=== PATIENT | female | born 1995 | race Hispanic/Latino ===

== ENCOUNTER 2019-09-21 20:42 | Emergency (ER) | payer OTHER, SELFPAY ==
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
[2019-09-21 20:50] VITALS: BP 125/76; PULSE 100; RESP 16; TEMP 36.7; O2SAT 97
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
[2019-09-21] MEDS: IBUPROFEN 600 MG TABLET PO (21:13)
--- NOTE | 2019-09-21 21:27 | PC.NURSE ---
pt back from ct
[2019-09-21 22:13] VITALS: BP 121/73; PULSE 67; RESP 19; TEMP 37.1; O2SAT 97
== END 2019-09-21 22:10 | disposition home or self-care (01) ==
PROVIDERS: Emergency Provider Emergency Medicine
DX: S39.92XA Unspecified injury of lower back, initial encounter (principal); S80.02XA Contusion of left knee, initial encounter; V43.52XA Car driver injured in collision with other type car in traffic accident, initial encounter
CPT/HCPCS: 72100; 73564; 81025; 99284; A9270

== ENCOUNTER 2020-02-10 00:31 | Emergency (ER) | payer OTHER, SELFPAY ==
[2020-02-10 00:34] VITALS: BP 117/83; PULSE 97; RESP 18; TEMP 36.4; O2SAT 98
[2020-02-10 00:44] VITALS: BP 135/88; PULSE 99; RESP 18; TEMP 37.2; O2SAT 96
--- NOTE | 2020-02-10 01:11 | ED.ALLEREA ---
HPI - Allergic Reaction General Chief complaint: Allergic Reaction Stated complaint: allergic reaction Time Seen by Provider: 02/10/20 00:54 History of Present Illness HPI narrative: Patient presents with itchy rash around her mouth lips and nose. Her daughter had applied plain make-up to her face. She has been rubbing and itching it since. She has other allergies including kiwi which makes her mouth tingle. She says she gets too sleepy with Benadryl. Certain Chapstick's also irritate her. She has no medical problems. Uses a Mirena for control. Surgical history includes x2. She does not smoke cigarettes, she does drink alcohol, she does not smoke marijuana. complaint: allergic reaction Onset (ago): hour(s) Exposure: other (Play lipstick) Symptoms: rash and itching Related Data Allergies Allergy/AdvReac Type Severity Reaction Status Date / Time codeine Allergy Unknown Hives Verified 09/21/19 20:54 Kiwi Allergy Unknown Unknown Uncoded 05/24/19 08:32 Review of Systems Review of Systems: Narrative: CONSTITUTIONAL: Denies fever, chills, or sweats. EYES: Denies visual changes, redness, or discharge. ENT: Denies rhinorrhea, congestion, sore throat, or otalgia. CARDIOVASCULAR: Denies chest pain, palpitations, or edema. RESPIRATORY: Denies cough or dyspnea. GASTROINTESTINAL: Denies abdominal pain, nausea, vomiting, or diarrhea. GENITOURINARY: Denies dysuria or hematuria. SKIN: She has rash and itching, Around her mouth MUSCULOSKELETAL: Denies back pain, joint pain, or myalgia. NEUROLOGIC: Denies headache, numbness, or weakness. PSYCHIATRIC: Denies anxiety or depression. [facility] Past Medical History Medical History Allergic reaction No pertinent past medical history Overweight Surgical History Surgical History History of History of section Social History Social History (Updated 02/10/20 @ 01:13 by Mariza Velez MD) Smoking status: Never smoker Alcohol intake: current Substance use: never Gender identity (if verbalized by the patient): Female Exam Narrative: Exam Narrative: GENERAL: Well-appearing, well-nourished, and in no acute distress. Overweight HEAD: Normocephalic, atraumatic. EYES: PERRLA and EOMI. ENT: Nares clear, no rhinorrhea or epistaxis. Mucous membranes moist. NECK: Supple. CHEST: Clear to auscultation. No respiratory distress. HEART: Regular rate and rhythm. No murmur heard. Normal peripheral pulses. ABDOMEN: Soft, nontender, nondistended, normal active bowel sounds. EXTREMITIES: Normal range of motion. No edema. SKIN: Warm, dry, slightly red rash around her mouth and nose. NEURO: No focal deficits. Alert and oriented x3. PSYCH: Normal mood and affect. Course Vital Signs Vital signs: Vital Signs Temperature 97.5 F L 02/10/20 00:34 Pulse Rate 97 02/10/20 00:34 Respiratory Rate 18 02/10/20 00:34 Blood Pressure 117/83 02/10/20 00:34 Pulse Oximetry 98 02/10/20 00:34 Temperature 99.0 F 02/10/20 00:44 Pulse Rate 99 02/10/20 00:44 Respiratory Rate 18 02/10/20 00:44 Blood Pressure 135/88 02/10/20 00:44 Pulse Oximetry 96 02/10/20 00:44 MDM - Allergic Reaction Differential Diagnosis Differential diagnosis: Likely allergic reaction Medical Records Attestation: I reviewed the patient's medical records. Discharge Plan Discharge Clinical Impression: Allergic reaction Qualifiers: Encounter type: initial encounter Qualified Code(s): T78.40XA - Allergy, unspecified, initial encounter Patient Disposition: Home, Self-Care Condition: Stable Instructions: Acute Rash (ED) Additional Instructions: Keep Benadryl, Claritin, and Zyrtec at home for allergic reaction. Avoid make-up, to get ingredients together as few as possible. Prescriptions: No Action cyclobenzaprine 10 mg tablet 10 mg PO TID PRN (R
[2020-02-10 01:55] VITALS: BP 129/80; PULSE 90; RESP 16; TEMP 37.2; O2SAT 98
== END 2020-02-10 01:57 | disposition home or self-care (01) ==
PROVIDERS: Emergency Provider Emergency Medicine
DX: T78.40XA Allergy, unspecified, initial encounter (principal); E66.3 Overweight; Z68.41 Body mass index [BMI] 40.0-44.9, adult
CPT/HCPCS: 99281

== ENCOUNTER 2020-03-02 22:25 | Emergency (ER) | payer OTHER, SELFPAY ==
[2020-03-02 22:27] VITALS: BP 121/97; PULSE 93; RESP 19; TEMP 37.2; O2SAT 100
--- NOTE | 2020-03-02 22:33 | ED.WOUNDLAC ---
HPI - Wound/Laceration General Chief Complaint: Wound/Laceration Stated Complaint: R 5th finger lac Time Seen by Provider: 03/02/20 22:30 Source: RN notes reviewed History of Present Illness HPI narrative: Patient presents emergency department from home for finger laceration. Patient states she was washing dishes prior to arrival when a glass broke cutting her right lateral fifth digit. Patient with flap laceration with venous bleeding at this time. She denies any other injury states she is right-hand dominant. Patient states her last tetanus shot was approximately 5 years ago. Denies any numbness or tingling Related Data Allergies Allergy/AdvReac Type Severity Reaction Status Date / Time codeine Allergy Unknown Hives Verified 09/21/19 20:54 Kiwi Allergy Unknown Unknown Uncoded 05/24/19 08:32 Review of Systems Review of Systems: Narrative: Gen.: Denies fevers or chills Musculoskeletal: Reports fifth finger pain Neuro: Denies numbness, tingling, weakness Skin: See HPI Endo: Denies DM PMFSH Past Medical History Medical History Allergic reaction No pertinent past medical history Overweight Social History Social History Smoking status: Never smoker Alcohol intake: current Substance use: never Gender identity (if verbalized by the patient): Female Exam Narrative: Exam Narrative: APPEARANCE: No acute distress, nontoxic, resting in bed Eyes: EOMI HEENT: Normocephalic, atraumatic, RESPIRATORY: No respiratory distress MUSCULOSKELETAl: Right fifth digit with full flexion-extension of MCP PIP and DIP, capillary refill less than 3 seconds NEURO: Awake and alert. Following commands, speech normal, no focal deficits SKIN:: Warm, dry. Large skin flap over the right lateral fifth digit in the region of the middle phalanx that is a flap laceration that is barely intact only by a tiny thread of skin approximately there is mild venous bleeding no tendon involvement no foreign body Course Course Emergency Course: Discussed with patient results of workup and diagnosis. Discussed need for follow-up with primary care, proper use of medication, and reasons to return to the emergency department. Patient understands and agrees to current treatment plan Vital Signs Vital signs: Vital Signs Temperature 98.9 F 03/02/20 22:27 Pulse Rate 93 03/02/20 22:27 Respiratory Rate 19 03/02/20 22:27 Blood Pressure 121/97 H 03/02/20 22:27 Pulse Oximetry 100 03/02/20 22:27 Temperature 98.9 F 03/02/20 22:27 Pulse Rate 93 03/02/20 22:27 Respiratory Rate 19 03/02/20 22:27 Blood Pressure 121/97 H 03/02/20 22:27 Pulse Oximetry 100 03/02/20 22:27 Procedures Laceration Laceration 1: ====== Skin Level ====== ====== Subcutaneous Layer ====== ====== Muscle Layer ====== ====== Tendon Layer ====== Dressin.5 cm flap laceration of the right digi. A digital block was performed using lidocaine 1%. Following this the wound was extensively cleaned with normal saline. The patient was noted to have a flap laceration only held in place by a tiny thread of skin and the flap was removed as it was felt that the skin would . The wound was extensively cleaned and a sterile dressing was placed. Patient tolerated the procedure well Discharge Plan Discharge Clinical Impression: Laceration of right little finger Patient Disposition: Home, Self-Care Condition: Stable Instructions: Antibiotic Form, Skin Avulsion (ED) Additional Instructions: Return for increasing pain bleeding from the wounds or any other symptoms of concern Prescriptions: No Action cyclobenzaprine 10 mg tablet 10 mg PO TID PRN (Reason: muscle spasm) Qty: 10 RF: 0 ibuprofen [IBU] 600 mg tablet 600 mg PO Q6H PRN (Reason: pain) Qty: 20 RF: 0 Follow-up/Referrals: PHYSICIAN,MIXING MACHINE OPERATOR [Prim
[2020-03-03 00:54] VITALS: BP 124/83; PULSE 88; RESP 22; TEMP 36.3; O2SAT 100
== END 2020-03-03 01:03 | disposition home or self-care (01) ==
PROVIDERS: Emergency Provider Emergency Medicine
DX: S61.216A Laceration without foreign body of right little finger without damage to nail, initial encounter (principal); W25.XXXA Contact with sharp glass, initial encounter; Y93.G1 Activity, food preparation and clean up
CPT/HCPCS: 99282

== ENCOUNTER 2020-11-29 14:46 | Emergency (ER) | payer OTHER, SELFPAY ==
--- NOTE | ~2020-11-29 | XR_ITS ---
EXAMINATION: XR knee LT min 4V DATE: 11/29/2020 15:18 INDICATION: Left knee pain TECHNIQUE: Weight bearing anteroposterior and Wills, sunrise, and flexed lateral views of the lef t knee were obtained COMPARISON: None. FINDINGS: Alignment is normal. No fracture. No joint effusion. Chronic corticated ossicles along the distal pa tellar tendon likely sequela of childhood Ash-Schlatter's disease. Soft tissues are unremarkable. IMPRESSION: 1. Stigmata of chronic Ash-Schlatter's disease. Otherwise unremarkable left knee radiographs. Reviewed, dictated and finalized at location A. IMPRESSION: 1. Stigmata of chronic Naches-Schlatter's disease. Otherwise unremarkable left knee radiographs.
--- NOTE | 2020-11-29 14:52 | ED.GENADULT ---
HPI - General Adult General Chief complaint: Extremity Injury, Lower Stated complaint: Left Knee Pain Time Seen by Provider: 11/29/20 15:05 Source: patient Mode of arrival: ambulatory Limitations: no limitations History of Present Illness HPI narrative: 25-year-old female patient presents to the [facility] with complaints of left knee pain for the past 2 weeks. Patient states she has chronic issues with her knees and has since she was about 16 years old. Patient states that her bones grew faster than she did. Patient states that she has been playing volleyball and been more active lately and 2 weeks ago she played volleyball and thinks that she might have slightly injured it then. Patient states it continues to have pain when walking on it. Patient states that at times she wraps it but nothing consistent. Patient states she has been taking Tylenol for her pain. Related Data Allergies Allergy/AdvReac Type Severity Reaction Status Date / Time codeine Allergy Unknown Hives Verified 09/21/19 20:54 Kiwi Allergy Unknown Unknown Uncoded 05/24/19 08:32 Review of Systems Review of Systems: Narrative: CONSTITUTIONAL: Denies fever, chills, or sweats. EYES: Denies visual changes, redness, or discharge. ENT: Denies rhinorrhea, congestion, sore throat, or otalgia. CARDIOVASCULAR: Denies chest pain, palpitations, or edema. RESPIRATORY: Denies cough or dyspnea. GASTROINTESTINAL: Denies abdominal pain, nausea, vomiting, or diarrhea. GENITOURINARY: Denies dysuria or hematuria. SKIN: Denies rash or itching. MUSCULOSKELETAL: Denies back pain, joint pain, or myalgia. Positive left knee pain x2 weeks NEUROLOGIC: Denies headache, numbness, or weakness. PSYCHIATRIC: Denies anxiety or depression. [facility] Past Medical History Medical History (Updated 11/29/20 @ 15:55 by RYAN Hernandez) Allergic reaction No pertinent past medical history Overweight Surgical History Surgical History History of History of section Social History Social History Smoking status: Never smoker Alcohol intake: current Substance use: never Gender identity (if verbalized by the patient): Female Comments At the time of my signature I agree with nursing past medical history, surgical, social, and family history. There is no relevant family history pertinent to the presenting complaint. Exam Narrative: Exam Narrative: GENERAL: Well-appearing, well-nourished, and in no acute distress. HEAD: Normocephalic, atraumatic. EYES: PERRLA and EOMI. ENT: Nares clear, no rhinorrhea or epistaxis. Mucous membranes moist. NECK: Supple. No lymphadenopathy CHEST: Clear to auscultation. No respiratory distress. HEART: Regular rate and rhythm. No murmur heard. Normal peripheral pulses. ABDOMEN: Soft, nontender, nondistended, normal active bowel sounds. EXTREMITIES: Patient is able to bear weight and ambulate but has pain to the left knee. No surface trauma, STS, or obvious effusion. No overlying erythema or warmth. The L knee is without obvious asymmetry or deformity when compared to the R/L knee. Patient is able to do deep knee bend with symmetry, fully extend knee but does have pain with these motions, no pain with internal and external rotation. No tendernss to palpation of the patella, no effusion or ballottement. No tenderness over the infrapatellar tendon. No tenderness over the medial or lateral joint lone ot the medial or lateral tibial plateaus. no tenderness over the proximal fibular head. no tenderness, fullness, or mass of the popliteal fossa. No quadriceps tenderness. No laxity of the ACL, PCL, MCL, or LCL. No collateral ligament laxity to valgus or vargus stress. Possibly positive francisco/drawer sign patient is heavier sent and is hard to tell. There is a lot of popping felt with flexion and extension of the left knee.. Negative Carley. Ne
[2020-11-29 14:54] VITALS: BP 123/73; PULSE 75; RESP 16; TEMP 36.5; O2SAT 98
== END 2020-11-29 16:00 | disposition home or self-care (01) ==
PROVIDERS: Emergency Provider Nurse Practitioner Family
DX: G89.29 Other chronic pain (principal); M25.562 Pain in left knee; E66.3 Overweight; Z68.41 Body mass index [BMI] 40.0-44.9, adult
CPT/HCPCS: 73564; 99213; G0463

== ENCOUNTER 2021-07-04 18:08 | Emergency (ER) | payer OTHER, SELFPAY ==
--- NOTE | ~2021-07-04 | XR_ITS ---
EXAMINATION: XR chest 1V portable DATE: 07/04/2021 21:16 INDICATION: Cough and fever and shortness of breath. TECHNIQUE: A single frontal view of the chest was obtained. COMPARISON: None. FINDINGS: The chest demonstrates clear lungs without pneumonia, pleural effusion, or pneumothorax. Th e heart size is normal. IMPRESSION: 1. No acute cardiopulmonary disease. Reviewed, dictated and finalized at location A. N BELT
[2021-07-04 18:12] VITALS: BP 143/83; PULSE 104; RESP 19; TEMP 37.1; O2SAT 98
[2021-07-04 20:56] VITALS: BP 125/79; PULSE 82; RESP 17; TEMP 37.3; O2SAT 98
[2021-07-04 20:57] VITALS: O2SAT 98
--- NOTE | 2021-07-04 21:26 | ED.URI ---
HPI - URI/Sore Throat General Chief Complaint: Upper Respiratory Infection Stated Complaint: SOB Time Seen by Provider: 07/04/21 20:42 Source: patient and RN notes reviewed Mode of arrival: ambulatory Limitations: no limitations History of Present Illness HPI Narrative: This is a 26 year old female who presents for evaluation of an upper respiratory infection. Patient has been having symptoms concerning for covid for 3 days. She is complaining of body aches, fever, chills, sore throat, loss of taste and smell , and cough. She is having nausea and diarrhea. She is awaiting results of COVID. She came to ER to get diagnosis. She has not been vaccinated but does not think she has had sick contacts. She lives with and kids. No one is vaccinated. Related Data Allergies Allergy/AdvReac Type Severity Reaction Status Date / Time codeine Allergy Unknown Hives Verified 07/04/21 18:14 Kiwi Allergy Unknown Unknown Uncoded 07/04/21 18:14 Review of Systems Review of Systems: All systems reviewed & are unremarkable except as noted in HPI and below PMFSH Past Medical History Medical History (Updated 07/04/21 @ 21:34 by Romelia Crespo MD) Allergic reaction No pertinent past medical history Overweight Surgical History Surgical History History of History of section Social History Social History Smoking status: Never smoker Alcohol intake: current Substance use: never Gender identity (if verbalized by the patient): Female Exam Const: General: no acute distress and alert Orientation/consciousness: patient oriented x3 HENMT: Head: normocephalic and atraumatic Ears: TM's normal bilaterally Face and sinus: normal facial exam, sinuses nontender and face symmetric Mouth: Yes Normal oral and palatal mucosa present, Yes lip normal, Yes tongue normal, Yes oropharynx normal and Yes moist mucous membranes Throat: posterior oropharynx normal, tonsils normal and uvula midline Eyes: EOM: EOMs intact bilaterally Resp: Effort & Inspection: normal respiratory effort, not labored, no retractions and not tachypneic Auscultation: clear to auscultation bilaterally and no crackles Cardio: Rate: regular rate Rhythm: regular rhythm Heart sounds: no murmurs GI: GI Palp: Yes Soft to palpation, No Tenderness to palpation present (GI) and No Guarding due to palpation present (GI) Auscultation: normal bowel sounds Neuro: General: patient oriented x3, moves all extremities and CN's II-XI intact bilaterally Psych: Mental Status: mental status grossly normal Affect: normal affect Course Reevaluation(s) Reevaluation #1: I Discussed with patient plan to discharge. She is not hypoxic. Chest xray is clear. I discussed she is likely dealing with viral infection. She understands she will need to quarantine until her covid results return. Date: 07/04/21 Time: 21:33 Vital Signs Vital signs: Vital Signs Temperature 98.7 F 07/04/21 18:12 Pulse Rate 104 H 07/04/21 18:12 Respiratory Rate 19 07/04/21 18:12 Blood Pressure 143/83 H 07/04/21 18:12 Pulse Oximetry 98 07/04/21 18:12 Temperature 99.2 F 07/04/21 20:56 Pulse Rate 82 07/04/21 20:56 Respiratory Rate 17 07/04/21 20:56 Blood Pressure 125/79 07/04/21 20:56 Pulse Oximetry 98 07/04/21 20:57 MDM - URI/Sore Throat Lab Data Labs: Influenza A Screen Negative Reference Range: Negative Influenza B Screen Negative Reference Range: Negative Strep Screen Presumptive Negative *(Reference Range: Negative)* Imaging Data Radiologist's impression: ITS Impressions Chest X-Ray 07/04/21 21:22 IMPRESSION: 1. No acute cardiopulmonar
[2021-07-04] MEDS: ONDANSETRON HCL ODT 4 MG TABLET PO (21:46)
== END 2021-07-04 21:52 | disposition home or self-care (01) ==
PROVIDERS: Emergency Provider General Practice
DX: B34.9 Viral infection, unspecified (principal); Z20.822 Contact with and (suspected) exposure to COVID-19; E66.3 Overweight; Z68.41 Body mass index [BMI] 40.0-44.9, adult
CPT/HCPCS: 71045; 87081; 87804; 87880; 99283; A9270

== ENCOUNTER 2022-05-18 17:41 | Emergency (ER) | payer OTHER, SELFPAY ==
[2022-05-18 17:49] VITALS: BP 124/79; PULSE 93; RESP 14; TEMP 36.4; O2SAT 99
--- NOTE | 2022-05-18 18:09 | ED.FEMALEGU ---
HPI - Female Genitourinary General Chief complaint: Vaginal Bleeding <Fariha Barrett PA-C - Last Filed: 05/18/22 18:34> Stated complaint: abnormal vaginal bleeding with clots <Fariha Barrett PA-C - Last Filed: 05/18/22 18:34> Time Seen by Provider: 05/18/22 17:56 <Fariha Barrett PA-C - Last Filed: 05/18/22 18:34> Source: patient <AIDEE Concepcion Last Filed: 05/18/22 18:34> Mode of arrival: ambulatory <Fariha Barrett PA-C - Last Filed: 05/18/22 18:34> Limitations: no limitations <Fariha Barrett PA-C - Last Filed: 05/18/22 18:34> History of Present Illness HPI Narrative: This is a 27-year-old female that presents to the emergency department for abnormal uterine bleeding. Ongoing over the last couple of months. Reports she is currently on her menstrual cycle. She has been on for about 4 days. Today her cycle became heavier which prompted her to be seen. She has had to use 2 regular tampons in the last couple of hours. Denies lightheadedness or shortness of breath. <Fariha Barrett PA-C - Last Filed: 05/18/22 18:34> Related Data Allergies/Adverse reactions: Allergies Allergy/AdvReac Type Severity Reaction Status Date / Time codeine Allergy Unknown Hives Verified 07/04/21 18:14 Kiwi Allergy Unknown Unknown Uncoded 07/04/21 18:14 <Fariha Barrett PA-C - Last Filed: 05/18/22 18:34> Review of Systems Review of Systems: CONSTITUTIONAL: Denies fever GASTROINTESTINAL: Denies abdominal pain, vomiting <Fariha Barrett PA-C - Last Filed: 05/18/22 18:34> All systems reviewed & are unremarkable except as noted in HPI and below <Fariha Barrett PA-C - Last Filed: 05/18/22 18:34> [facility] Past Medical History Medical History: Medical History (Updated 05/18/22 @ 18:34 by Fariha Barrett PA-C) Allergic reaction No pertinent past medical history Overweight <Fariha Barrett PA-C - Last Filed: 05/18/22 18:34> Surgical History Surgical History: Surgical History History of History of section <Fariha Barrett PA-C - Last Filed: 05/18/22 18:34> Social History Social History: Social History Smoking status: Never smoker Alcohol intake: current Substance use: never Gender identity (if verbalized by the patient): Female <Fariha Barrett PA-C - Last Filed: 05/18/22 18:34> Exam Narrative: GENERAL: Well-appearing, well-nourished, and in no acute distress. HEAD: Normocephalic, atraumatic. EYES: EOMI. CHEST: No respiratory distress. HEART: Regular rate EXTREMITIES: Normal range of motion. No edema. SKIN: Warm, dry, no rash. NEURO: No focal deficits. Alert and oriented x3. PSYCH: Normal mood and affect PELVIC: Normal external genitalia. Normal-appearing cervix. 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 I agree with the assessment and plan as documented. <Jong Day MD - Last Filed: 05/18/22 23:01> Vital Signs Vital signs: Vital Signs Temperature 97.6 F 05/18/22 17:49 Pulse Rate 93 05/18/22 17:49 Respiratory Rate 14 05/18/22 17:49 Blood Pressure 124/79 05/18/22 17:49 Pulse Oximetry 99 05/18/22 17:49 Oxygen Delivery Room Air 05/18/22 17:49 Temperature 97.6 F 05/18/22 17:49 Pulse Rate 93 05/18/22 17:49 Respiratory Rate 14 05/18/22 17:49 Blood Pressure 124/79 05/18/22 17:49 Pulse Oximetry 99 05/18/22 17:49 Oxygen Delivery Room Air 05/18/22 17:49 <Fariha Barrett PA-C - Last Filed: 05/18/22 18:34> Vital Signs Temperature 97.6 F 05/18/22 17:49 Pulse Rate 93 05/18/22 17:49 Respiratory Rate 14 05/18/22 17:49 Blood Pressure 124/79 05/18/22 17:49 Pulse Oximetry 99 05/18/22 17:4
[2022-05-18 18:22] LABS: Basophils Percent Auto 0.4 % (0.2-1.2); Eosinophils Absolute Auto 0.2 K/mm3 (0-0.3); Hematocrit 38.8 % (37.0-47.0); Hemoglobin 13.1 g/dL (12.0-15.0); Immature Granulocyte Absolute 0.02 K/mm3 (0.00-0.031); Immature Granulocyte Percent A 0.3 % (0-0.5); Lymphocytes Absolute Auto 1.62 K/mm3 (0.9-3.2); Lymphocytes Percent Auto 21.6 % (18.3-44.2); Mean Corpuscular HGB Conc 33.8 g/dl (32-36); Mean Corpuscular Hemoglobin 30.8 pg (26-34); Mean Corpuscular Volume 91.1 fl (80-100); Mean Platelet Volume 9.4 fl (7.4-10.4); Monocytes Absolute Auto 0.3 K/mm3 (0.1-0.6); Monocytes Percent Auto 4.4 % (2.6-8.5); Neutrophils Absolute Auto 5.4 K/mm3 (1.3-6.7); Neutrophils Percent Auto 71.3 % (45.5-73.1); Platelet Count Result 328 k/mm3 (150-375); Red Blood Count 4.26 M/mm3 (4.2-5.4); White Blood Count 7.5 K/mm3 (4.5-10.0)
== END 2022-05-18 18:42 | disposition home or self-care (01) ==
PROVIDERS: Physician Assistant; Emergency Provider Preventive Medicine Aerospace Medicine
DX: N93.8 Other specified abnormal uterine and vaginal bleeding (principal)
CPT/HCPCS: 36415; 81025; 85025; 99284

== ENCOUNTER 2022-05-31 16:19 | Emergency (ER) | payer OTHER, SELFPAY ==
[2022-05-31 16:31] VITALS: BP 111/68; PULSE 76; RESP 16; TEMP 36.2; O2SAT 99
--- NOTE | 2022-05-31 16:51 | ED.ABDPAIN ---
HPI - Abdominal Pain General Chief Complaint: Abdominal Pain Stated Complaint: Abdominal Pain, Vomiting Time Seen by Provider: 05/31/22 16:51 Source: patient, RN notes reviewed and old records reviewed Mode of arrival: ambulatory Limitations: no limitations History of Present Illness HPI narrative: 27-year-old female presents to the [facility] with complaints of right lower quadrant pain and vomiting since last night. Unable to keep fluids down. Patient states ?I just need some IV fluids back in take my kids trigger treating. ? Does not want to go to the ER. Related Data Allergies Allergy/AdvReac Type Severity Reaction Status Date / Time codeine Allergy Unknown Hives Verified 05/31/22 16:36 Kiwi Allergy Unknown Unknown Uncoded 05/31/22 16:36 Review of Systems Review of Systems: All systems reviewed & are unremarkable except as noted in HPI and below Constitutional: Constitutional: Reports no additional constitutional complaints, Denies chills and Denies fever(s) Eyes: Eyes: Reports no additional eye complaints ENT: Reports system reviewed and no additional complaints, except as documented Cardiovascular: Cardiovascular: Reports no additional cardiovascular complaints Respiratory: Respiratory: Reports no additional respiratory complaints Gastrointestinal: Gastrointestinal: Reports as per HPI, Reports abdominal pain (Right lower quadrant), Reports nausea and Reports vomiting Musculoskeletal: Musculoskeletal: Reports no additional musculoskeletal complaints Integumentary/Breasts: Skin/Breast: Reports system reviewed and no additional complaints, except as docu Neurologic: Reports system reviewed and no additional complaints, except as documented Psychiatric: Psychiatric: Reports no additional psychiatric complaints Allergic/Immunologic: Allergic/Immunologic: Reports no additional allergic/immunologic complaints [facility] Past Medical History Medical History (Updated 06/01/22 @ 07:55 by Jenna Solis APRN) Allergic reaction No pertinent past medical history Overweight Surgical History Surgical History History of History of section Social History Social History Smoking status: Never smoker Alcohol intake: current Substance use: never Gender identity (if verbalized by the patient): Female Comments At the time of my signature, I reviewed and agree with the nursing past medical, surgical, social, and family history. There is no relevant family history pertinent to the patient complaint. Exam Const: General: no acute distress, alert, ill appearing acutely (Mild) and well nourished Nutritional Appearance: well nourished and obese Orientation/consciousness: patient oriented x3 Limitations: no limitations HENMT: Head: normal to inspection Ears: external ears normal, TM's normal bilaterally and EAC's normal Face/Nose/Sinus: Normal external nose present Face and sinus: normal facial exam Mouth: Yes lip normal and Yes dry mucous membranes Throat: posterior oropharynx normal and uvula midline Eyes: General: appearance normal, both eyes and all related structures Pupils: Equal, round and reactive pupils present Neck: Neck: normal visual inspection, no lymphadenopathy and no meningeal signs Chest: Chest palpation & inspection: normal inspection of the chest Resp: Effort & Inspection: normal respiratory effort and no use of accessory muscles Auscultation: clear to auscultation bilaterally, no crackles, no rales, no rhonchi and no wheezes Cardio: Rate: regular rate Rhythm: regular rhythm GI: GI Palp: Yes Soft to palpation, Yes Tenderness to palpation present (GI) (Right lower quadrant), No Guarding due to palpation present (GI) and No Rigid due to palpation Auscultation: normal bowel sounds Skin: General skin exam: normal color Rashes: no rashes Wounds: no wounds Neuro:
== END 2022-05-31 17:06 | disposition short-term general hospital (02) ==
LOC: EXPCOLL 16:22
PROVIDERS: Emergency Provider Nurse Practitioner
DX: R10.31 Right lower quadrant pain (principal); R11.2 Nausea with vomiting, unspecified
CPT/HCPCS: 99212; G0463

== ENCOUNTER 2022-08-17 12:02 | Emergency (ER) | payer OTHER, SELFPAY ==
--- NOTE | ~2022-08-17 | CT_ITS ---
Non-contrast CT scan of the Abdomen and Pelvis Clinical indication: Left flank pain Technique: 5 mm axial scans were obtained through the abdomen and pelvis without intravenous or oral contrast. Dose reduction technique was used on this scan by utilizing automated exposure control and iterative reconstruction technique. The dose-length product (DLP) was 604.19 mGy-cm. Findings: Images through the lung bases reveal no abnormalities. 3 mm left UVJ stone is present. No mars hydronephrosis. 3 mm nonobstructing right renal stone presen t. The liver, spleen, pancreas, and adrenals appear normal. Gallstones are present. There is no aortic a neurysm. There is no evidence of bowel obstruction. Normal appendix. Images through the pelvis were performed. There is no evidence of ascites or lymphadenopathy. Urinary bladder unremarkable otherwise. No adnexal mass seen. Impression: 3 mm left UVJ stone. No mars hydronephrosis. 3 mm nonobstructing right renal stone. Reviewed, dictated and finalized at [facility]. 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 No mars hydronephrosis. 3 mm nonobstructing right renal stone.
[2022-08-17 12:18] VITALS: BP 130/88; PULSE 95; RESP 16; TEMP 36.3; O2SAT 97
[2022-08-17 12:59] LABS: Appearance Urine Clear (Clear); Bilirubin Urine Negative (Negative); Blood Urine 1+ (Negative); Color Urine Yellow (Yellow); Glucose Urine UA Negative (Negative); Ketones Urine Negative (Negative); Leukocyte Esterase Ur Negative LEU/UL (Negative); Nitrate Urine Negative (Negative); Protein Urine Trace mg/dL (Negative); Specific Grav Ur 1.025 (1.001-1.035); Urobilinogen Urine 0.2 mg/dL (<2.0); pH Urine 6.5 (5.0-9.0)
[2022-08-17 13:07] LABS: Add Urine Microscopic? YES; Bacteria Urine Trace /hpf; Mucus Urine Heavy /lpf; RBC Urine 21-50 /hpf (0-2); Squamous Epithelial Cell Urine Moderate /hpf (Few); WBC Urine 0-3 /hpf
[2022-08-17] MEDS: KETOROLAC 30 MG/ML VIAL (*BKC) IM (13:34)
--- NOTE | 2022-08-17 17:04 | ED.ABDPAIN ---
HPI - Abdominal Pain General Chief Complaint: Abdominal Pain Stated Complaint: pain in left lower ribs Time Seen by Provider: 08/17/22 12:35 History of Present Illness HPI narrative: 27-year-old female presenting with left flank pain, blood in her urine, increased frequency some nausea today. No fevers or chills., Never had been diagnosed with kidney stones in the past. Takes Tylenol for the pain with some improvement. Related Data Allergies Allergy/AdvReac Type Severity Reaction Status Date / Time codeine Allergy Unknown Hives Verified 08/17/22 12:29 Kiwi Allergy Unknown Unknown Uncoded 05/31/22 16:36 Review of Systems Review of Systems: CONST: No fever. HEENT: No sore throat C/V: No chest pain RESP: No cough GI: Reports left flank pain, nausea : dysuria. M/S: No joint pain. SKIN: No rash. NEURO: [No headache or focal numbness or weakness] PSYCH: [No depression] PMFSH Past Medical History Medical History Allergic reaction No pertinent past medical history Overweight Surgical History Surgical History History of History of section Social History Social History Smoking status: Never smoker Alcohol intake: current Substance use: never Gender identity (if verbalized by the patient): Female Exam Narrative: EXAMINATION OF ORGAN SYSTEMS/BODY AREAS: Constitutional: Vital signs per nursing GENERAL: Sitting comfortably, nontoxic HEAD: Normal with no signs of head trauma. EYES: EOMI, conjunctiva normal ENT: Hearing grossly intact LUNGS: Nonlabored breathing. HEART: [Regular rate and rhythm] ABD: [Soft], [nontender to palpation] EXT: Normal range of motion SKIN: [No rashes or lesions.] NEURO: [Alert and oriented x 3. No gross focal sensory or strength deficits.] PSYCH: Normal affect Course Vital Signs Vital signs: Vital Signs Temperature 97.4 F L 08/17/22 12:18 Pulse Rate 95 08/17/22 12:18 Respiratory Rate 16 08/17/22 12:18 Blood Pressure 130/88 08/17/22 12:18 Pulse Oximetry 97 08/17/22 12:18 Oxygen Delivery Room Air 08/17/22 12:18 Temperature 97.4 F L 08/17/22 12:18 Pulse Rate 95 08/17/22 12:18 Respiratory Rate 16 08/17/22 12:18 Blood Pressure 130/88 08/17/22 12:18 Pulse Oximetry 97 08/17/22 12:18 Oxygen Delivery Room Air 08/17/22 12:18 MDM - Abdominal Pain MDM Narrative Medical decision making narrative: ED COURSE AND MEDICAL DECISION MAKIN-year-old female presenting to the emergency department for left flank pain, symptoms are concerning for likely renal colic versus pyelonephritis. Urinalysis is ordered. Toradol ordered. CT scan of the abdomen/pelvis is ordered. Labs are remarkable for: Hematuria without pyuria. CT scan of the abdomen/pelvis is reviewed by myself and interpreted by radiology: 3 mm left UVJ stone. On reevaluation, the patient more comfortable. Patient is strongly advised to return to the emergency department for any increasing pain not improving with medications, persistent nausea vomiting, fevers or chills or for any other concerns. She is given follow-up to urology. Patient is comfortable with this plan and was discharged in fair condition. Lab Data Labs: Lab Results 08/17/22 Range/Units 12:49 Urine Color Yellow (Yellow) Urine Appearance Clear (Clear) Urine pH 6.5 (5.0-9.0) Ur Specific [place] 1.025 (1.001-1.035) Urine Protein Trace (Negative) mg/dL Urine Glucose (UA) Negative (Negative) mg/dL Urine Ketones Negative (Negative) mg/dL Ur Blood (Man) 1+ H (Negative) Urine Nitrate Negative (Negative) Urine Bilirubin Negative (Negative) Urine Urobilinogen 0.2 (<2.0) mg/dL Leukocyte Esterase Rfl Negative (Negative) ANTONI[place]TA/UL Urine RBC 21-50 H (0-2) /hpf Urine WBC 0-3 /hpf Ur Squamous Epith Ce
== END 2022-08-17 14:06 | disposition home or self-care (01) ==
PROVIDERS: Emergency Provider Emergency Medicine
DX: N20.1 Calculus of ureter (principal)
CPT/HCPCS: 74176; 81001; 81025; 96372; 99284; J1885

== ENCOUNTER 2022-12-07 15:04 | Emergency (ER) | payer OTHER, SELFPAY ==
[2022-12-07 15:10] VITALS: BP 114/72; PULSE 79; RESP 16; TEMP 36.8; O2SAT 98
--- NOTE | 2022-12-07 15:13 | ED.SKABFB ---
HPI - Skin/Abscess/Foreign Bdy General Chief complaint: Skin/Abscess/Foreign Body Stated complaint: Rash Time Seen by Provider: 12/07/22 15:14 Source: patient, RN notes reviewed and old records reviewed Mode of arrival: ambulatory Limitations: no limitations History of Present Illness HPI narrative: 27-year-old female presents to the [facility] with a rash to her back and bilateral arms that started 2 days ago. States that she when she took a hot shower this morning it made it worse. No treatment prior to arrival. Denies any new creams or ointments lotions or detergents. Onset (ago): day(s) (2) Related Data Allergies Allergy/AdvReac Type Severity Reaction Status Date / Time codeine Allergy Unknown Hives Verified 12/07/22 15:13 mushroom Allergy Swelling Verified 12/07/22 15:13 Kiwi Allergy Unknown Unknown Uncoded 12/07/22 15:13 Review of Systems Review of Systems: All systems reviewed & are unremarkable except as noted in HPI and below Constitutional: Constitutional: Reports no additional constitutional complaints Eyes: Eyes: Reports no additional eye complaints ENT: Reports system reviewed and no additional complaints, except as documented Cardiovascular: Cardiovascular: Reports no additional cardiovascular complaints, Denies chest pain and Denies dyspnea Respiratory: Respiratory: Reports no additional respiratory complaints, Denies chest congestion, Denies cough and Denies dyspnea Gastrointestinal: Gastrointestinal: Reports no additional gastrointestinal complaints, Denies abdominal pain, Denies nausea and Denies vomiting Musculoskeletal: Musculoskeletal: Reports no additional musculoskeletal complaints Integumentary/Breasts: Skin/Breast: Reports as per HPI and Reports pruritus Neurologic: Reports system reviewed and no additional complaints, except as documented Psychiatric: Psychiatric: Reports no additional psychiatric complaints Allergic/Immunologic: Allergic/Immunologic: Reports no additional allergic/immunologic complaints [facility] Past Medical History Medical History (Updated 12/07/22 @ 19:27 by Jenna Solis APRN) Allergic reaction No pertinent past medical history Overweight Surgical History Surgical History History of History of section Social History Social History Smoking status: Never smoker Alcohol intake: current Substance use: never Gender identity (if verbalized by the patient): Female Comments At the time of my signature, I reviewed and agree with the nursing past medical, surgical, social, and family history. There is no relevant family history pertinent to the patient complaint. Exam Const: General: cooperative, healthy appearing, comfortable, no acute distress, well developed, alert and well nourished Nutritional Appearance: well nourished and obese Orientation/consciousness: patient oriented x3 Limitations: no limitations HENMT: Head: normal to inspection Ears: hearing grossly normal bilaterally and external ears normal Face/Nose/Sinus: Normal external nose present, Normal nares present, Normal nasal mucous membranes and turbinates present and normal facial exam Face and sinus: normal facial exam Mouth: Yes Normal oral and palatal mucosa present, Yes lip normal and Yes moist mucous membranes Throat: posterior oropharynx normal and uvula midline Eyes: General: appearance normal, both eyes and all related structures Alignment and Position: alignment normal Periorbital: periorbital findings normal Conjunctivae: conjunctivae normal Pupils: Equal, round and reactive pupils present EOM: EOMs intact bilaterally Neck: Neck: normal visual inspection, full ROM, no lymphadenopathy and no meningeal signs Chest: Chest palpation & inspection: normal inspection of the chest Resp: Effort & Inspection: normal respiratory effort and able to speak in com
[2022-12-07 15:14] VITALS: BP 114/72; PULSE 79; RESP 16; TEMP 36.8; O2SAT 98
== END 2022-12-07 15:27 | disposition home or self-care (01) ==
PROVIDERS: Emergency Provider Nurse Practitioner
DX: L50.9 Urticaria, unspecified (principal); L25.9 Unspecified contact dermatitis, unspecified cause
CPT/HCPCS: 99213; G0463

== ENCOUNTER 2022-12-09 03:22 | Emergency (ER) | payer OTHER, SELFPAY ==
[2022-12-09 03:23] VITALS: BP 139/72; PULSE 92; RESP 18; TEMP 36.5; O2SAT 100
--- NOTE | 2022-12-09 04:04 | ED.GENADULT ---
HPI - General Adult General Chief complaint: Skin/Abscess/Foreign Body Stated complaint: poisony loren all over Time Seen by Provider: 12/09/22 03:51 History of Present Illness HPI narrative: This is a 27-year-old female presenting with a pruritic rash. patient had to climb through some foliage to get 1 of her children's toys on Tuesday. Soon after she developed a pruritic rash over her back and across the back of her legs. She has taken multiple [id number] treatments and she still has significant itching. Related Data Allergies Allergy/AdvReac Type Severity Reaction Status Date / Time codeine Allergy Unknown Hives Verified 12/07/22 15:13 mushroom Allergy Swelling Verified 12/07/22 15:13 Kiwi Allergy Unknown Unknown Uncoded 12/07/22 15:13 [facility] Past Medical History Medical History (Updated 12/09/22 @ 04:10 by Bill Trevizo MD) Allergic reaction No pertinent past medical history Overweight Surgical History Surgical History History of History of section Social History Social History Smoking status: Never smoker Alcohol intake: current Substance use: never Gender identity (if verbalized by the patient): Female Exam Narrative: APPEARANCE: No apparent distress. Head: atraumatic. EYES: EOMI, NOSE: Atraumatic NECK: Trachea midline RESPIRATORY: No increased rate of breathing CARDIOVASCULAR: RRR, ABDOMINAL: Non-distended MUSCULOSKELETAl: No obvious deformities NEURO: Alert. Moving 4/4 extremities SKIN:: erythematous rash in a brush-like pattern over the patient's back. Similar rash over the back of the thighs. No erythema or purulent discharge to be indicative of infection. PSYCHIATRIC: Normal affect Course Vital Signs Vital signs: Vital Signs Temperature 97.7 F 12/09/22 03:23 Pulse Rate 92 12/09/22 03:23 Respiratory Rate 18 12/09/22 03:23 Blood Pressure 139/72 12/09/22 03:23 Pulse Oximetry 100 12/09/22 03:23 Oxygen Delivery Room Air 12/09/22 03:23 Temperature 97.7 F 12/09/22 03:23 Pulse Rate 92 12/09/22 03:23 Respiratory Rate 18 12/09/22 03:23 Blood Pressure 139/72 12/09/22 03:23 Pulse Oximetry 100 12/09/22 03:23 Oxygen Delivery Room Air 12/09/22 03:23 Medical Decision Making MDM Narrative Medical decision making narrative: -Presentation: 27-year-old female presenting with pruritic rash. 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 lives with her children -External Chart Review: Urgent care note -Independent interpretation of studies: skin exam is consistent with poison loren exposure -Interventions: 60 mg p.o. prednisone -Shared decision making / Disposition: patient will be discharged on a prednisone taper. She will be given a prescription for Keflex with instructions take it if she develops significant erythema or pain that would be indicative of infection. -RX Prednisone taper, Keflex Vital Signs Vital Signs: Vital Signs Temperature 97.7 F 12/09/22 03:23 Pulse Rate 92 12/09/22 03:23 Respiratory Rate 18 12/09/22 03:23 Blood Pressure 139/72 12/09/22 03:23 Pulse Oximetry 100 12/09/22 03:23 Oxygen Delivery Room Air 12/09/22 03:23 Temperature 97.7 F 12/09/22 03:23 Pulse Rate 92 12/09/22 03:23 Respiratory Rate 18 12/09/22 03:23 Blood Pressure 139/72 12/09/22 03:23 Pulse Oximetry 100 12/09/22 03:23 Oxygen Delivery Room Air 12/09/22 03:23 Discharge Plan Discharge Clinical Impression: Contact dermatitis due to poison loren Patient Disposition: Home, Self-Care Condition: Stable Instructions: Antibiotic Form, Poison Loren (ED) Additional Instructions: He was seen emergency department for poison loren. Please take a steroid taper. Please
[2022-12-09] MEDS: predniSONE 20 MG TABLET 60 MG PO (04:16)
[2022-12-09 06:30] VITALS: BP 130/84; PULSE 78; RESP 16; O2SAT 99
== END 2022-12-09 07:01 | disposition home or self-care (01) ==
LOC: ANHED 04:13
PROVIDERS: Emergency Provider Emergency Medicine
DX: L25.5 Unspecified contact dermatitis due to plants, except food (principal)
CPT/HCPCS: 99283; J7512

== ENCOUNTER 2022-12-28 13:26 | Emergency (ER) | payer OTHER, SELFPAY ==
[2022-12-28 13:55] VITALS: BP 134/91; PULSE 110; RESP 16; TEMP 36.7; O2SAT 100
--- NOTE | 2022-12-28 16:01 | PC.NURSE ---
lab contacted regarding missing results. states both tests errored out. states will rerun tests.
[2022-12-28 16:30] LABS: Strep Group A RT-PCR NOT DETECTED (Negative)
[2022-12-28 16:42] LABS: Influenza A QL RT-PCR Negative (Negative); Influenza B QL RT-PCR Negative (Negative); SARS-CoV-2 RNA PCR Negative (Negative)
--- NOTE | 2022-12-28 17:24 | ED.GENADULT ---
HPI - General Adult General Chief complaint: Upper Respiratory Infection Stated complaint: cold symptoms Time Seen by Provider: 12/28/22 14:34 Source: patient Mode of arrival: ambulatory Limitations: no limitations History of Present Illness HPI narrative: This is a 27-year-old female with chief complaint of URI symptoms x1.5 weeks. Reports cough, congestion, sore throat, postnasal drainage, fevers. Reports that her child and boyfriend at home are sick with the same symptoms. Denies fevers, chills, chest pain, shortness of breath, urinary symptoms, abdominal pain, vomiting. Related Data Allergies Allergy/AdvReac Type Severity Reaction Status Date / Time codeine Allergy Unknown Hives Verified 12/07/22 15:13 mushroom Allergy Swelling Verified 12/07/22 15:13 Kiwi Allergy Unknown Unknown Uncoded 12/07/22 15:13 Review of Systems Review of Systems: CONSTITUTIONAL: Denies fever, chills, or sweats. EYES: Denies visual changes, redness, or discharge. ENT: See HPI CARDIOVASCULAR: Denies chest pain, palpitations, or edema. RESPIRATORY: Denies cough or dyspnea. GASTROINTESTINAL: Denies abdominal pain, nausea, vomiting, or diarrhea. GENITOURINARY: Denies dysuria or hematuria. SKIN: Denies rash or itching. MUSCULOSKELETAL: Denies back pain, joint pain, or myalgia. NEUROLOGIC: Denies headache, numbness, dizziness, or weakness. PSYCHIATRIC: Denies anxiety or depression. [facility] Past Medical History Medical History (Updated 12/28/22 @ 17:25 by Jasbir Oates PA-C) Allergic reaction No pertinent past medical history Overweight Surgical History Surgical History History of History of section Social History Social History Smoking status: Never smoker Alcohol intake: current Substance use: never Gender identity (if verbalized by the patient): Female Exam Narrative: GENERAL: Well-appearing, well-nourished, and in no acute distress. HEAD: Normocephalic, atraumatic. EYES: PERRLA and EOMI. ENT: Nares clear, no rhinorrhea or epistaxis. Mucous membranes moist. Oropharynx without tonsillar hypertrophy exudate or other lesions. Posterior oropharynx erythema is present. Postnasal drainage is present. NECK: Supple. No adenopathy or masses. CHEST: No respiratory distress. Clear to auscultation. No wheezes rales or rhonchi HEART: Regular rate and rhythm. No murmur heard. Normal peripheral pulses. ABDOMEN: Soft, nontender, nondistended, normal active bowel sounds. MSK: Normal range of motion. No edema. SKIN: Warm, dry, no rash. NEURO: Alert and oriented x3. No focal deficits. PSYCH: Normal mood and affect. Course Vital Signs Vital signs: Vital Signs Temperature 98.1 F 12/28/22 13:55 Pulse Rate 110 H 12/28/22 13:55 Respiratory Rate 16 12/28/22 13:55 Blood Pressure 134/91 H 12/28/22 13:55 Pulse Oximetry 100 12/28/22 13:55 Temperature 98.1 F 12/28/22 13:55 Pulse Rate 82 12/28/22 17:30 Respiratory Rate 16 12/28/22 17:30 Blood Pressure 113/83 12/28/22 17:30 Pulse Oximetry 99 12/28/22 17:30 Medical Decision Making MDM Narrative Medical decision making narrative: This is a 27-year-old female presents to the ED with chief complaint of URI symptoms x1.5 weeks. Vitals are stable. Afebrile. COVID and flu swabs are negative. Strep swab is negative. She tells me that her boyfriend at home has had human metapneumovirus. Her symptoms are very much consistent with this virus. She stable for discharge. Return precautions given and supportive measures were discussed. Pt is understanding and agreeable with plan for dc and follow up with PCP. Vital Signs Vital Signs: Vital Signs Temperature 98.1 F 12/28/22 13:55 Pulse Rate 110 H 12/28/22 13:55 Respiratory Rate 16 12/28/22 13:55 Blood Pressure 134/91 H 12/28/22 13:55 Pulse Oximetry 100
[2022-12-28 17:30] VITALS: BP 113/83; PULSE 82; RESP 16; O2SAT 99
== END 2022-12-28 17:30 | disposition home or self-care (01) ==
PROVIDERS: Emergency Medicine; Emergency Provider Physician Assistant
DX: B34.9 Viral infection, unspecified (principal); Z20.822 Contact with and (suspected) exposure to COVID-19; E66.3 Overweight; Z68.39 Body mass index [BMI] 39.0-39.9, adult
CPT/HCPCS: 87636; 87651; 99283

== ENCOUNTER 2023-01-11 22:35 | Emergency (ER) | payer OTHER, SELFPAY ==
--- NOTE | ~2023-01-11 | CT_ITS ---
EXAMINATION: CT abdomen pelvis w con INDICATION: Suprapubic abdominal pain TECHNIQUE: Computed tomographic images of the abdomen and pelvis were obtained after the administrati on of 100 cc of Omnipaque 350 intravenous contrast. The dose-length product (DLP) was 1332 mGy-cm. Au tomated exposure control and iterative reconstruction technique were employed. COMPARISON: 08/17/2022 FINDINGS: Minimal dependent atelectasis is present in the lung bases. The heart size is normal. Stone s are present in the nondistended gallbladder. The liver, spleen, pancreas, and adrenal glands are no rmal. The left kidney is unremarkable. There is a 4 mm stone of the proximal right ureter which cause s mild hydronephrosis. No pathologically enlarged abdominal or pelvic lymph nodes are identified. No free intraperitoneal gas or evidence of bowel obstruction. The appendix is normal. There is a small u mbilical hernia containing fat. IMPRESSION: 1. 4 mm stone of the proximal right ureter causing mild hydronephrosis. 2. Cholelithiasis without evidence of cholecystitis. Reviewed, dictated and finalized at location A.
[2023-01-11 22:38] VITALS: BP 126/71; PULSE 100; RESP 18; TEMP 36.3; O2SAT 99
[2023-01-13 12:57] LABS: Basophils Percent Auto 0.3 % (0.2-1.2); Eosinophils Absolute Auto 0.1 K/mm3 (0-0.3); Eosinophils Percent Auto 1.1 % (0-4.4); Immature Granulocyte Absolute 0.03 K/mm3 (0.00-0.031); Immature Granulocyte Percent A 0.4 % (0-0.5); Lymphocytes Absolute Auto 1.58 K/mm3 (0.9-3.2); Lymphocytes Percent Auto 21.5 % (18.3-44.2); Mean Corpuscular HGB Conc 33.3 g/dl (32-36); Mean Corpuscular Hemoglobin 30.3 pg (26-34); Mean Corpuscular Volume 90.9 fl (80-100); Mean Platelet Volume 9.7 fl (7.4-10.4); Monocytes Absolute Auto 0.5 K/mm3 (0.1-0.6); Monocytes Percent Auto 6.9 % (2.6-8.5); Neutrophils Absolute Auto 5.1 K/mm3 (1.3-6.7); Neutrophils Percent Auto 69.8 % (45.5-73.1); Platelet Count Result 314 k/mm3 (150-375); Red Blood Count 4.29 M/mm3 (4.2-5.4); Red Cell Distribution Width 12.6 % (11.5-14.5); White Blood Count 7.3 K/mm3 (4.5-10.0)
--- NOTE | 2023-01-13 17:35 | ER_ITS ---
This report was moved to the correct visit on 01/19/2023. Original report was signed by Kolby Cabrales MD on 01/14/23 0707 and co-signed by Destiny Garland PA-C on 01/14/23 0907. HPI - Nausea/Vomiting/Diarrhea History of Present Illness HPI Narrative: 27 y/o F reports for evaluation of multiple episodes of vomiting, watery diarrhea and generalized abdominal pain x24 hours. Pt states she went to [employer] yesterday then developed symptoms later and is concerned it was due to something she ate a [employer]. She denies fever, body aches, chills, CP, SOB, sore throat, congestion, cough, melena, hematochezia, hematemesis, urinary complaints, vaginal bleeding or discharge. LMP ~3-4 weeks ago. <Destiny Garland PA-C - Last Filed: 01/14/23 09:07> Related Data Allergies/Adverse reactions: Allergies Allergy/AdvReac Type Severity Reaction Status Date / Time codeine Allergy Unknown Hives Verified 12/07/22 15:13 mushroom Allergy Swelling Verified 12/07/22 15:13 Kiwi Allergy Unknown Unknown Uncoded 12/07/22 15:13 <Destiny Garland PA-C - Last Filed: 01/14/23 09:07> Review of Systems Review of Systems: CONSTITUTIONAL: Denies fever, chills EYES: Denies visual changes, redness, or discharge. ENT: Denies rhinorrhea, congestion, sore throat, or otalgia. CARDIOVASCULAR: Denies chest pain, palpitations, or edema. RESPIRATORY: Denies cough or dyspnea. GASTROINTESTINAL: See HPI GENITOURINARY: Denies dysuria or hematuria. SKIN: Denies rash or itching. MUSCULOSKELETAL: Denies back pain, joint pain, or myalgia. NEUROLOGIC: Denies headache, numbness, dizziness, or weakness. PSYCHIATRIC: Denies anxiety or depression. <Destiny Garland PA-C - Last Filed: 01/14/23 09:07> [facility] Past Medical History Medical History: Medical History Allergic reaction No pertinent past medical history Overweight <Destiny Garland PA-C - Last Filed: 01/14/23 09:07> Surgical History Surgical History: Surgical History History of History of section <Destiny Garland PA-C - Last Filed: 01/14/23 09:07> Social History Social History: Social History Smoking status: Never smoker Alcohol intake: current Substance use: never Gender identity (if verbalized by the patient): Female <Destiny Garland PA-C - Last Filed: 01/14/23 09:07> Exam Narrative: GENERAL: Well-appearing, in no acute distress. HEAD: Normocephalic EYES: PERRLA ENT: Nares clear. Mucous membranes moist. Oropharynx without tonsillar hypertrophy exudate or other lesions. NECK: Supple. CHEST: No respiratory distress. Clear to auscultation, no adventitious breath sounds. HEART: Regular rate and rhythm. No murmur heard. Normal peripheral pulses. ABDOMEN: Normal active bowel sounds. Generalized abdominal tenderness with guarding, more prominent in the lower quadrants. No CVA tenderness. No rigidity or rebound tenderness. EXTREMITIES: Normal range of motion. No edema. SKIN: Warm, dry, no rash. NEURO: No focal deficits. Alert and oriented x3. PSYCH: Normal mood and affect. <Destiny Garland PA-C - Last Filed: 01/14/23 09:07> MDM - Nausea/Vomiting/Diarrhea MDM Narrative Medical decision making narrative: 27 y/o F reports for evaluation of n/v/d and generalized abdominal pain x24 hours. Vitals stable. Exam reveals generalized abdominal tenderness with guarding, more prominent over the suprapubic region. CBC and chemistries unremarkable. Lipase normal. UA w/o evidence of UTI. Urine
[2023-01-14 01:31] LABS: Appearance Urine Clear (Clear); Bacteria Urine 4+ /hpf; Bilirubin Urine Negative (Negative); Blood Urine Negative (Negative); Color Urine Dark Yellow (Yellow); Glucose Urine UA Negative (Negative); Ketones Urine Trace mg/dL (Negative); Leukocyte Esterase Ur Negative LEU/UL (Negative); Need Manual Microscopic Reviewed; Nitrate Urine Negative (Negative); Protein Urine 1+ mg/dL (Negative); Specific Grav Ur 1.033 (1.001-1.035); Squamous Epithelial Cell Urine Many /hpf (Few); WBC Urine >100 /hpf
[2023-01-14 01:38] LABS: Add Urine Microscopic? YES
[2023-01-14 03:18] LABS: Add Urine Microscopic? YES; Appearance Urine Clear (Clear); Bacteria Urine 2+ /hpf; Bilirubin Urine 1+ (Negative); Blood Urine Negative (Negative); Color Urine Dark Yellow (Yellow); Glucose Urine UA Negative (Negative); Ketones Urine Trace mg/dL (Negative); Leukocyte Esterase Ur Trace LEU/UL (Negative); Need Manual Microscopic Reviewed; Nitrate Urine Negative (Negative); Non Pathogenic Casts 0-2; Protein Urine Trace mg/dL (Negative); Specific Grav Ur 1.034 (1.001-1.035); Squamous Epithelial Cell Urine Many /hpf (Few)
[2023-01-14 12:17] LABS: Potassium 3.5 mmol/L (3.4-5.0); Sodium 138 mmol/L (137-145)
[2023-01-14 12:18] LABS: Alanine Aminotransferase 22 U/L (6-35); Albumin Level 4.4 g/dL (3.5-5.1); Alkaline Phosphatase 42 U/L (38-126); Anion Gap 7 mmol/L (8-16); Aspartate Amino Transferase 27 U/L (14-36); Bilirubin,Total 0.6 mg/dL (0.2-1.3); Blood Urea Nitrogen 14 mg/dL (7-17); Calcium 8.8 mg/dL (8.4-10.2); Carbon Dioxide 30 mmol/L (22-30); Chloride 101 mmol/L (98-107); Estimated CRCL calculation 102 ml/min; Estimated Glomerular Filt Rate > 60; Glucose 107 mg/dL (65-110); Lipase 69 U/L (23-300); Total Protein 7.6 g/dL (6.3-8.2)
== END 2023-01-12 06:25 | disposition left against medical advice (07) ==
LOC: ANHED 01-12 18:32
PROVIDERS: Emergency Medicine; Emergency Provider Emergency Medicine
DX: N13.2 Hydronephrosis with renal and ureteral calculous obstruction (principal); R10.84 Generalized abdominal pain; E66.3 Overweight; Z68.41 Body mass index [BMI] 40.0-44.9, adult; K80.20 Calculus of gallbladder without cholecystitis without obstruction
CPT/HCPCS: 36415; 74177; 80053; 81001; 83690; 85025; 87086; 99283; 99284; J2405; J7030; Q9967

== ENCOUNTER 2023-01-25 19:04 | Emergency (ER) | payer OTHER, SELFPAY ==
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
[2023-01-25 19:07] VITALS: BP 108/66; PULSE 95; RESP 16; TEMP 36.9; O2SAT 95
[2023-01-25 21:11] VITALS: BP 132/84; PULSE 91; RESP 18; O2SAT 98
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
[2023-01-25 23:00] VITALS: BP 106/65; PULSE 81; RESP 20; O2SAT 98
== END 2023-01-25 23:00 | disposition home or self-care (01) ==
PROVIDERS: Emergency Provider Emergency Medicine
DX: M25.552 Pain in left hip (principal); R51.9 Headache, unspecified; V89.0XXA Person injured in unspecified motor-vehicle accident, nontraffic, initial encounter
CPT/HCPCS: 70450; 72072; 72100; 72125; 73502; 99284

== ENCOUNTER 2023-02-08 16:21 | Observation (INO) | payer OTHER, SELFPAY ==
--- NOTE | ~2023-02-08 | XR_ITS ---
Supine and upright views of the abdomen Clinical history: Right UVJ stone Findings: Bowel gas pattern is nonspecific. No evidence for obstruction or free air. No abnormal mass lesion or calcification is seen. There is contrast in the renal collecting systems and urinary bladd er. Osseous structures are intact. Impression: Known 7 mm right UVJ stone not clearly visualized, possibly obscured by excreted contrast in the blad molina. Reviewed, dictated and finalized at location M. Impression: Known 7 mm right UVJ stone not clearly visualized, possibly obscured by excrete d contrast in the bladder.
--- NOTE | ~2023-02-08 | CT_ITS ---
CT of the Abdomen and Pelvis: Indication: Abdominal pain Technique: 2.5 mm axial scans were obtained through the abdomen and pelvis following intravenous adm inistration of 100 cc of Omnipaque 350. Dose reduction technique was used on this scan by utilizing a utomated exposure control and iterative reconstruction technique. The dose-length product (DLP) was 1 577.72 mGy-cm. COMPARISON: 01/12/2023 Findings: Scans through the lung bases demonstrate bibasilar atelectatic change. There is a 7 x 4 mm right UVJ stone with moderate right hydroureteronephrosis, and delayed right neph rogram as compared to left side. There is right perinephric fluid. There is excreted contrast in the left renal collecting system. No left renal or ureteral stone. No left hydronephrosis. The liver, spleen, pancreas, and adrenal glands are within normal limits. Small gallstones are presen t. No evidence of aortic aneurysm. No lymphadenopathy. No bowel obstruction or bowel wall thickening. There is no evidence to suggest acute appendicitis. Images through the pelvis were performed. Urinary bladder otherwise unremarkable. No adnexal mass see n. No ascites. Impression: 7 x 4 mm right ureteral stone has migrated to the right UVJ. There is now moderate right hydrouretero nephrosis. Right perinephric fluid could indicate calyceal rupture. Cholelithiasis. Reviewed, dictated and finalized at [facility]. Impression: 7 x 4 mm right ureteral stone has migrated to the right UVJ. There is now moder ate right hydroureteronephrosis. Right perinephric fluid could indicate calycea l rupture. Cholelithiasis.
--- NOTE | ~2023-02-08 | XR_ITS ---
EXAMINATION: XR retrograde pyelo w/stent RT DATE: 02/09/2023 16:22 INDICATION: Right UVJ stone. TECHNIQUE: 7 fluoroscopic images of the abdomen and pelvis were obtained during procedure performed b anders [facility]. Radiologist was not present for the imaging or procedure. The amount of fluoroscopy time used during this procedure was 0.5 minutes. COMPARISON: 02/09/2023 FINDINGS: The stone at the right ureterovesicular junction is unable to be visualized on the initial radiology transporter imag es. Subsequent images demonstrate cannulation of the right ureter and a wire advanced into the right renal collecting system. Retrograde contrast injection demonstrates persistent moderate right hydrone phrosis. Final images demonstrate placement of a right internal ureteral stent with loops formed at t he right renal pelvis and in the bladder. IMPRESSION: 1. Moderate right hydroureteronephrosis with placement of a right internal ureteral stent in expected position. The previously seen stone is not identified and may have either passed or been removed. Co rrelate with procedure note for further detail. Reviewed, dictated and finalized at location A. IMPRESSION: 1. Moderate right hydroureteronephrosis with placement of a right internal uret eral stent in expected position. The previously seen stone is not identified an d may have either passed or been removed. Correlate with procedure note for fur ther detail.
[2023-02-08 16:24] VITALS: BP 145/95; PULSE 65; RESP 22; TEMP 36.9; O2SAT 99
[2023-02-08 16:42] LABS: Basophils Percent Auto 0.3 % (0.2-1.2); Eosinophils Absolute Auto 0.1 K/mm3 (0-0.3); Eosinophils Percent Auto 1.5 % (0-4.4); Hematocrit 39.5 % (37.0-47.0); Hemoglobin 13.4 g/dL (12.0-15.0); Immature Granulocyte Absolute 0.02 K/mm3 (0.00-0.031); Immature Granulocyte Percent A 0.2 % (0-0.5); Lymphocytes Absolute Auto 1.84 K/mm3 (0.9-3.2); Mean Corpuscular HGB Conc 33.9 g/dl (32-36); Mean Corpuscular Hemoglobin 30.5 pg (26-34); Mean Platelet Volume 9.7 fl (7.4-10.4); Monocytes Absolute Auto 0.4 K/mm3 (0.1-0.6); Monocytes Percent Auto 4.1 % (2.6-8.5); Neutrophils Absolute Auto 6.8 K/mm3 (1.3-6.7); Neutrophils Percent Auto 73.9 % (45.5-73.1); Platelet Count Result 358 k/mm3 (150-375); Red Blood Count 4.39 M/mm3 (4.2-5.4); Red Cell Distribution Width 12.7 % (11.5-14.5); White Blood Count 9.2 K/mm3 (4.5-10.0)
[2023-02-08 16:53] LABS: Alanine Aminotransferase 26 U/L (6-35); Albumin Level 4.9 g/dL (3.5-5.1); Alkaline Phosphatase 66 U/L (38-126); Anion Gap 9 mmol/L (8-16); Aspartate Amino Transferase 28 U/L (14-36); Bilirubin,Total 0.5 mg/dL (0.2-1.3); Blood Urea Nitrogen 14 mg/dL (7-17); Calcium 9.7 mg/dL (8.4-10.2); Carbon Dioxide 24 mmol/L (22-30); Chloride 105 mmol/L (98-107); Estimated CRCL calculation 100 ml/min; Estimated Glomerular Filt Rate > 60; Glucose 158 mg/dL (65-110); Lipase 96 U/L (23-300); Potassium 3.7 mmol/L (3.4-5.0); Sodium 138 mmol/L (137-145)
--- NOTE | 2023-02-08 21:17 | ED.ABDPAIN ---
HPI - Abdominal Pain General Chief Complaint: Abdominal Pain <AIDEE Chambers Last Filed: 02/09/23 03:34> Stated Complaint: abdominal pain <AIDEE Chambers Last Filed: 02/09/23 03:34> Time Seen by Provider: 02/08/23 20:10 <AIDEE Chambers Last Filed: 02/09/23 03:34> Source: patient <AIDEE Chambers Last Filed: 02/09/23 03:34> Mode of arrival: ambulatory <AIDEE Chambers Filed: 02/09/23 03:34> Limitations: no limitations <AIDEE Chambers Filed: 02/09/23 03:34> History of Present Illness HPI narrative: Patient is a 28-year-old female who presents to the ED via EMS with report of right-sided abdominal pain. Patient reports pain began suddenly around 1 PM. She reports having pain in her right upper and lower abdomen, radiating around to her right mid back. She thought it may be period cramps at first, but states pain continued to worsen. Pain has been constant. She tried taking Midol without relief. She reports having nausea and vomiting, denies any fever, diarrhea, constipation, dysuria, hematuria. Denies history of gallbladder issues. Reports Hx of kidney stones as a young child. <AIDEE Chambers Last Filed: 02/09/23 03:34> Related Data Home Medications: Home Medications Medication Instructions Recorded Confirmed No Home Medications 02/09/23 02/09/23 <AIDEE Chambers Last Filed: 02/09/23 03:34> Allergies/Adverse Reactions: Allergies Allergy/AdvReac Type Severity Reaction Status Date / Time codeine Allergy Unknown Hives Verified 02/09/23 14:55 mushroom Allergy Swelling Verified 02/09/23 14:55 Kiwi Allergy Unknown Unknown Uncoded 02/09/23 14:55 <AIDEE Chambers Last Filed: 02/09/23 03:34> Review of Systems Review of Systems: CONSTITUTIONAL: Denies fever, chills, or sweats. CARDIOVASCULAR: Denies chest pain. RESPIRATORY: Denies dyspnea. GASTROINTESTINAL: See HPI. GENITOURINARY: Denies dysuria or hematuria. SKIN: Denies rash or itching. MUSCULOSKELETAL: See HPI. <AIDEE Chambers Last Filed: 02/09/23 03:34> All systems reviewed & are unremarkable except as noted in HPI and below <AIDEE Chambers Last Filed: 02/09/23 03:34> [facility] Past Medical History Medical History: Medical History (Updated 02/09/23 @ 13:56 by Barry Light MD) Allergic reaction Hydroureter Morbid obesity with BMI of 40.0-44.9, adult <AIDEE Chambers Last Filed: 02/09/23 03:34> Surgical History Surgical History: Surgical History History of History of section <AIDEE Chambers Last Filed: 02/09/23 03:34> Social History Social History: Social History Smoking status: Never smoker Alcohol intake: current Drinks per week: 1 Substance use: never Lack of Transportation: No Lack of Food: Never True Current Housing: I Have Housing Concerned About Future Housing: No Difficulty Paying Gas/Electric Bills: No Difficulty Paying for Meds: No Currently Unemployed: No Education: High School Diploma/GED Difficulty w/ Childcare or Family Care: No Living arrangements: alone Additional living arrangements comments: Lives alone with her children Occupation/Education: occupation Additional occupation/education comments: Works at [employer] Gender identity (if verbalized by the patient): Female Spiritual care concerns: No <AIDEE Chambers Last Filed: 02/09/23 03:34> Exam Narrative: GENERAL: Uncomfortable appearing, morbidly obese with BMI of 40.0, non-toxic, in no acute distress. HEAD: Normocephalic, atraumatic. NECK: Supple. No adenopathy, no masses. RESPIRATORY: Airway patent, respirations nonlabored. Clear to
[2023-02-08] MEDS: fentaNYL CITRATE INJ (*CRX) 100 MCG/2 ML VIAL 25 MCG IV PUSH (21:40)
[2023-02-08] MEDS: SODIUM CHLORIDE 0.9% IV 1,000 ML 999 ML IV CONT ×3 (21:40→23:38)
[2023-02-08] MEDS: ONDANSETRON INJ 4 MG/2 ML VIAL IV PUSH (21:47)
[2023-02-08 21:49] VITALS: BP 141/91; PULSE 71; RESP 17; O2SAT 94
[2023-02-08 23:14] LABS: Appearance Urine Cloudy (Clear); Bacteria Urine None Seen /hpf; Bilirubin Urine Negative (Negative); Blood Urine 3+ (Negative); Color Urine Dark Yellow (Yellow); Glucose Urine UA Negative (Negative); Ketones Urine 3+ mg/dL (Negative); Leukocyte Esterase Ur Negative LEU/UL (Negative); Need Manual Microscopic Reviewed; Nitrate Urine Negative (Negative); Protein Urine 3+ mg/dL (Negative); RBC Urine 51-100 /hpf (0-2); Squamous Epithelial Cell Urine Occasional /hpf (Few); WBC Urine 0-5 /hpf
[2023-02-08 23:15] LABS: Add Urine Microscopic? YES; Calcium Oxalate Crystals Urine Present /hpf
[2023-02-08] MEDS: fentaNYL CITRATE INJ (*CRX) 100 MCG/2 ML VIAL 50 MCG IV PUSH (23:39)
[2023-02-09] VITALS (13 sets, daily range): BP systolic 101–143; BP diastolic 48–92; PULSE 80–101; RESP 15–30; TEMP 36.6–37.3; O2SAT 90–100
[2023-02-09] MEDS: ONDANSETRON INJ 4 MG/2 ML VIAL IV PUSH ×2 (00:13→08:20)
[2023-02-09] MEDS: HYDROmorphone HCL INJ (*CRX) 1 MG/ML SYR 0.5 MG IV PUSH ×4 (00:43→11:47)
[2023-02-09] MEDS: TAMSULOSIN HCL 0.4 MG CAPSULE PO (02:49)
[2023-02-09] MEDS: METOCLOPRAMIDE HCL INJ 10 MG/2 ML VIAL IV PUSH (02:49)
[2023-02-09] MEDS: SODIUM CHLORIDE 0.9% IV 1,000 ML 100 ML IV CONT (05:13)
--- NOTE | 2023-02-09 05:52 | PC.NURSE ---
This patient, Radha Holm, was admitted to Medical Room 348-01. Patient/family oriented to hospital policies and general routines including ID bracelet, bed and alarms, visiting hours, pain management, procedures, bathroom and other care routines, personal items, smoking policy, room service/diet, and visiting hours. Information on how to activate the Rapid Response Team has been discussed. Patient/Family are encouraged to report perceived risks to care and to ask questions if they do not understand what they are told or what they should do.
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
--- NOTE | 2023-02-09 10:12 | WPDURCON ---
Assessment and Plan Assessment and plan (1) Hydronephrosis: Qualifiers: Hydronephrosis type: with ureteral calculous obstruction Qualified Code(s): N13.2 - Hydronephrosis with renal and ureteral calculous obstruction <Marly Paulson APRN - Last Filed: 02/09/23 13:10> Code(s): N13.30 - Unspecified hydronephrosis <Marly Paulson APRN - Last Filed: 02/09/23 13:10> Status: Acute <Marly Paulson APRN - Last Filed: 02/09/23 13:10> (2) Calculus of distal right ureter: Code(s): N20.1 - Calculus of ureter <Marly Paulson APRN - Last Filed: 02/09/23 13:10> Status: Acute <Marly Paulson APRN - Last Filed: 02/09/23 13:10> Assessment and Plan: Obtain Consent: Cystoscopy, right ureteroscopy with stone extraction, right stent placement, right retrograde pyelogram, possible holmium laser. Keep NPO. Plan to discharge home after surgery if tolerating diet. <Malry Paulson APRN - Last Filed: 02/09/23 13:10> Urology Consult Note HPI Date Seen: 02/09/23 <Marly Paulson APRN - Last Filed: 02/09/23 13:10> 02/09/23 <Corazon Lu MD - Last Filed: 02/09/23 13:07> Time Seen: 09:00 <Marly Paulson APRN - Last Filed: 02/09/23 13:10> Requesting Physician: Ryan Cuevas MD <Marly Paulson APRN - Last Filed: 02/09/23 13:10> Primary Care Provider: ANKLE PATCH MOLDER PHYSICIAN <Marly Paulson APRN - Last Filed: 02/09/23 13:10> Consult Narrative Reason for consult: Right Distal Ureteral Stone <Marly Paulson APRN - Last Filed: 02/09/23 13:10> Narrative: Radha Holm is a 28 year old female who presented to the ER last night for acute onset of right sided abdominal pain accompanied by nausea and vomiting that began around midnight the night before. She has a history of stones that she passed spontaneously on her own. She was found on CT to have a 7x4mm right ureteral stone in the UVJ with moderate hydro and possible calyceal rupture. KUB does indentify the stone. UA is negative, creatinine is 0.90, WBC 9.2, vitals are stable and she is afebrile. <Marly Paulson APRN - Last Filed: 02/09/23 13:10> Review of Systems Cardiovascular: Cardiovascular: Denies chest pain <Marly Paulson APRN - Last Filed: 02/09/23 13:10> Respiratory: Respiratory: Reports no additional respiratory complaints <Marly Paulson APRN - Last Filed: 02/09/23 13:10> Gastrointestinal: Gastrointestinal: Reports abdominal pain, Denies nausea and Denies vomiting <Marly Paulson APRN - Last Filed: 02/09/23 13:10> Genitourinary: Genitourinary: Denies hematuria, Denies nocturia, Denies dysuria, Denies pelvic pain, Reports flank pain, Denies urinary incontinence, Denies urinary hesitancy and Denies urinary urgency <Marly Paulson APRN - Last Filed: 02/09/23 13:10> [facility] Past Medical History Medical History: Medical History Allergic reaction No pertinent past medical history Overweight <Marly Paulson APRN - Last Filed: 02/09/23 13:10> Surgical History Surgical History: Surgical History History of History of section <Marly Paulson APRN - Last Filed: 02/09/23 13:10> Social History Social History: Social History Smoking status: Never smoker Alcohol intake: current Drinks per week: 1 Substance use: never Lack of Transportation: No Lack of Food: Never True Current Housing: I Have Housing Concerned About Future Housing: No Difficulty Paying Gas/Electric Bills: No Difficulty Paying for Meds: No Currently Unemployed: No Education: High School Diploma/GED Difficulty w/ Childcare or Family Care: No Living arrangements: alone Additional living arrangements comments: Lives
--- NOTE | 2023-02-09 13:07 | WPDHPUPDATE1 ---
History and Physical Update Update Date/Time: 02/09/23 13:07 History and Physical has been reviewed, including an updated exam of the patient. There are NO changes in the patient's condition. Risks, benefits, and alternatives have been discussed and questions answered. Patient agrees to proceed with procedure.
--- NOTE | 2023-02-09 13:56 | WPDANESEPPF ---
Anes - Initial Pre Proc Eval Procedure: Operation Date: 02/09/23 15:30 Proposed Procedures p Cystoscopy, Right Ureteroscopy, Right Retrograde Pyelogram, Possible Right Stone Extraction, Possible Right Stent Placement, Possible Holmium Laser - Corazon Lu MD Date/Time: 02/09/23 13:56 Surgeon: Ryan Cuevas MD Pre Op Diagnosis: a uvj stone,pain control,hydronephrosis/hydroure Patient Data Age: 28 Gender: F Height: 1.65 m Weight: 109 kg Last Vital Signs Temp 36.6 C 02/09/23 06:00 Pulse 91 02/09/23 06:00 Resp 20 02/09/23 06:00 BP 130/67 02/09/23 06:00 Pulse Ox 93 02/09/23 06:00 O2 Del Method Room Air 02/09/23 08:00 Allergies Allergy/AdvReac Type Severity Reaction Status Date / Time codeine Allergy Unknown Hives Verified 02/09/23 14:55 mushroom Allergy Swelling Verified 02/09/23 14:55 Kiwi Allergy Unknown Unknown Uncoded 02/09/23 14:55 Home Medications Medication Instructions Recorded Confirmed Type No Home Medications 02/09/23 02/09/23 History Laboratory Tests 02/08/23 02/08/23 16:34 22:43 WBC 9.2 K/mm3 (4.5-10.0) RBC 4.39 M/mm3 (4.2-5.4) Hgb 13.4 g/dL (12.0-15.0) Hct 39.5 % (37.0-47.0) MCV 90.0 fl (80-100) MCH 30.5 pg (26-34) MCHC 33.9 g/dl (32-36) RDW 12.7 % (11.5-14.5) Plt Count 358 k/mm3 (150-375) MPV 9.7 fl (7.4-10.4) Immature Gran % (Auto) 0.2 % (0-0.5) Neut % (Auto) 73.9 H % (45.5-73.1) Lymph % (Auto) 20.0 % (18.3-44.2) [place] % (Auto) 4.1 % (2.6-8.5) Eos % (Auto) 1.5 % (0-4.4) Baso % (Auto) 0.3 % (0.2-1.2) Lymph # (Auto) 1.84 K/mm3 (0.9-3.2) [place] # (Auto) 0.4 K/mm3 (0.1-0.6) Eos # (Auto) 0.1 K/mm3 (0-0.3) Baso # (Auto) 0.0 K/mm3 (0.0-0.1) Abs Immat Gran (auto) 0.02 K/mm3 (0.00-0.031) Absolute Neuts (auto) 6.8 H K/mm3 (1.3-6.7) Absolute Nucleated RBC 0.0 K/mm3 (0.0-0.012) Nucleated RBC % 0.0 % (0.0-0.2) Sodium 138 mmol/L (137-145) Potassium 3.7 mmol/L (3.4-5.0) Chloride 105 mmol/L (98-107) Carbon Dioxide 24 mmol/L (22-30) Anion Gap 9 mmol/L (8-16) BUN 14 mg/dL (7-17) Creatinine 0.90 mg/dL (0.7-1.0) Estim Creat Clear Calc 100 ml/min Estimated GFR > 60 (59 - ) Glucose 158 H mg/dL (65-110) Calcium 9.7 mg/dL (8.4-10.2) Total Bilirubin 0.5 mg/dL (0.2-1.3) AST 28 U/L (14-36) ALT 26 U/L (6-35) Alkaline Phosphatase 66 U/L (38-126) Total Protein 8.0 g/dL (6.3-8.2) Albumin 4.9 g/dL (3.5-5.1) Lipase 96 U/L (23-300) Urine Color Dark yellow (Yellow) Urine Appearance Cloudy H (Clear) Urine pH 6.0 (5.0-9.0) Ur Specific [place] 1.040 H (1.001-1.035) Urine Protein 3+ H mg/dL (Negative) Urine Glucose (UA) Negative mg/dL (Negative) Urine Ketones 3+ H mg/dL (Negative) Ur Blood (Man) 3+ H (Negative) Urine Nitrate Negative (Negative) Urine Bilirubin Negative (Negative) Urine Urobilinogen 1.0 mg/dL (<2.0) Add Ur Microanalysis Reviewed Leukocyte Esterase Rfl Negative [place]/UL (Negative) Urine RBC 51-100 /hpf (0-2) Urine WBC 0-5 /hpf Ur Squamous Epith Cells Occasional /hpf (Few) Calcium Oxalate Crystal Present /hpf (None) Urine Bacteria None seen /hpf Urine Casts 3-5 Patient hx anesthesia problems: none Family hx anesthesia problems: none Results Review: All pre-operative results and documents have been reviewed as part of the pre-operative evaluation. [facility] Past Medical History Medical History (Updated 02/09/23 @ 13:56 by Barry Light MD) Allergic reaction Hydroureter Morbid obesity with BMI of 40.0-44.9, adult
[2023-02-09] MEDS: LACTATED RINGERS 1,000 ML 30 ML IV CONT (14:45)
[2023-02-09] MEDS: ceFAZolin 2 GM/D5W 50 ML 2 GM/50 ML BAG IVPB (15:55)
--- NOTE | 2023-02-09 16:20 | W.PM.PROC2 ---
Procedure Note - Detailed Date of Procedure 02/09/23 Pre-op Diagnosis Right ureteral stone, hydronephrosis Post-op Diagnosis Same Procedure Performed Cystoscopy, right retrograde pyelogram, right ureteroscopy, stone extraction, stent insertion Surgeon Corazon Lu MD Anesthesia General Description of Procedure Informed consent was obtained. Patient taken the operating. She was given preoperative IV antibiotics. She was induced anesthesia. She was prepped and draped in the normal sterile fashion in the dorsal lithotomy position. A 22 F cystoscope was inserted through the urethra into the bladder. We inspected the bladder there were no mucosal abnormalities. We cannulated the right ureteral orifice then dilated the distal ureter with a 10 coaxial dilator. Then advanced the semi rigid ureteral scope into the ureter and encountered the 7mm stone approximately 2 to 3 cm above the UVJ. We were able to grasp the stone with a Zero tip basket and remove it. We reinserted the ureteral scope into small additional stones were identified in the distal ureter that were removed. We then inspected the length of the ureter with the semi rigid ureteral scope and there were no residual stones seen. Retrograde pyelogram was performed that showed no extravasation, there was moderate right hydronephrosis. We elected to place a 6 F variable length stent with a curl in the renal pelvis and a curl in the bladder. The bladder was emptied lidocaine was instilled patient was taken to the recovery room in stable condition Plan right ureteral stent removal in 1 to 2 weeks Complications No immediate complications Condition Stable Disposition PACU
--- NOTE | 2023-02-09 17:40 | PM.DS ---
DS: Admitting Diagnosis Discharge Date TuesdayFebruary 09 Admitting Diagnosis Right flank pain, obstructing kidney stone DS: Discharge Diagnosis Discharge Diagnosis (1) Calculus of distal right ureter: Code(s): N20.1 - Calculus of ureter Status: Acute Assessment and Plan: -patient with a 7 x 4 mm right ureteral stone migrated to the right UVJ. With moderate right hydroureternephrosis. -urology on board and will take her this afternoon for cystoscopy with stone extraction and stent placement. -UA is unremarkable for infectious process. -pain control with IV Dilaudid -continuous IV fluid -NPO for surgery -there is a potential for discharge today after her procedure if patient's pain is improved and she is tolerating oral intake. (2) Hydronephrosis: Qualifiers: Hydronephrosis type: with ureteral calculous obstruction Qualified Code(s): N13.2 - Hydronephrosis with renal and ureteral calculous obstruction Code(s): N13.30 - Unspecified hydronephrosis Status: Acute DS: Summary Hospital Course Reason for hospitalization: Right kidney stone Hospital Course: Chief Complaint: Right flank pain Narrative: This is a 28-year-old female who has a past medical history of kidney stones when she was a child and C-sections x2.? She takes no medications that are prescribed but she does take [id number] women's daily vitamin and iron.? She presents to the ER by EMS after having what I presume to be a vasovagal syncopal episode in a restaurant bathroom after vomiting.? She says that yesterday around 1:00 p.m. she started to have some right flank pain which she contributed to her menstrual cycle.? She ignored the pain went about her day but the pain started to increase so she took some Midol.? She then started having some vomiting which she thought was related to her taking Midol and the stomach.? She went to dinner with her children and her boyfriend for his birthday at a [employer] restaurant and had to go to the bathroom to vomit.? During that time she describes an almost fainting episode, she did not lose consciousness but she says that things were cloudy.? Worker found her in the bathroom and then called EMS.? Her labs on admission were unremarkable, UA with a urine specific gravity of 1.040, 3+ protein, 3+ ketones, 3+ blood but negative for infection.? CT of the abdomen and pelvis shows a 7 x 4 mm right ureteral stone which has migrated to the right UVJ.? There is moderate right hydroureteronephrosis.? She is being admitted for IV fluids, pain control, and urological consult. 02/09:? Patient is seen this morning lying in bed sleeping.? She awakens to verbal stimuli.? She does appear uncomfortable and in pain.? She states that the Dilaudid does help with her pain but it is short lived and it does make her desat so she is on 2 L of nasal cannula oxygen at this time.? She had a few sips of water this morning around 5am which caused her to vomit.? Since she has been NPO.? She has moderate abdominal tenderness to the right lower quadrant and right flank.? She denies dysuria, frequency, urgency.? She is unsure if there was blood in her urine because she is currently menstruating.? During my visit the Urology GAS BURNER OPERATOR came in to discuss plan of care.? Patient will go today for cystoscopy with stent placement and stone extraction.? Depending upon how patient feels after the procedure urology is okay with patient discharging home today.? I will assess her for pain and tolerating an oral intake prior to determining discharge disposition.? Patient is agreeable to this plan of care. Status at Discharge Cognitive/behavioral status at discharge: Independent functional Time Spent with Patient Time attestation: Total time spent providing and/or coordinating discharge services:33 Exam Narrative: General: well-nourished, well-appearing 28 year-old female, resting in bed, appears in pain. Neuro: awake, alert and oriented x4, speech c
[2023-02-09] MEDS: ACETAMINOPHEN 325 MG TABLET 650 MG PO (21:50)
== END 2023-02-09 22:14 | disposition home or self-care (01) ==
LOC: ANHED 02-09 03:34 → ANH3MED 02-09 10:08
PROVIDERS: Emergency Medicine; Urology; Admitting Provider Internal Medicine; Emergency Provider Physician Assistant; Visit Provider Nurse Practitioner Acute Care
PROC: (CPT 52352; principal; 2023-02-09 15:30)
DX: N13.2 Hydronephrosis with renal and ureteral calculous obstruction (principal); K80.20 Calculus of gallbladder without cholecystitis without obstruction; E66.01 Morbid (severe) obesity due to excess calories; Z68.41 Body mass index [BMI] 40.0-44.9, adult; F10.90 Alcohol use, unspecified, uncomplicated
CPT/HCPCS: 52352; 52332; 36415; 74018; 74177; 74420; 80053; 81001; 81025; 82365; 83690; 85025; 88300; 96361; 96374; 96375; 96376; 99285; A9270; C1769; C2617; G0378; G0379; J0690; J1100; J1170; J2405; J2704; J2765; J3010; J7030; J7120; Q9966; Q9967

== ENCOUNTER 2025-03-01 15:47 | Emergency (ER) | payer SELFPAY ==
[2025-03-01 15:54] VITALS: BP 121/75; PULSE 72; RESP 18; TEMP 36.5; O2SAT 100
--- NOTE | 2025-03-01 16:33 | ED.EAR ---
HPI - Ear Problem General Chief complaint: Ear Stated complaint: RT Ear Infection Time Seen by Provider: 03/01/25 16:15 Source: patient and RN notes reviewed Mode of arrival: ambulatory Limitations: no limitations History of Present Illness HPI Narrative: 30-year-old female presents Express Care complaining of right ear pain for approximately 3 days. Patient reports she was recently swimming does not believe she got water in her ears. Since then patient has pain in her right ear. Patient denies any upper respiratory symptoms, cough, fevers, dizziness, or any other symptoms. Patient has been taking Tylenol and ibuprofen to help with the pain. Patient has skipped the dose of her Plavix because she wanted take a dose of ibuprofen. 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 Related Data Home Medications ?Medication ?Instructions ?Recorded ?Confirmed ?Last Taken ?Type aspirin 81 mg tablet,delayed mg 03/01/25 Unknown History release atorvastatin 80 mg tablet mg 03/01/25 Unknown History clopidogrel 75 mg tablet mg 03/01/25 Unknown History Allergies Allergy/AdvReac Type Severity Reaction Status Date / Time codeine Allergy Unknown Hives Verified 03/01/25 15:55 mushroom Allergy Swelling Verified 03/01/25 15:55 Kiwi Allergy Unknown Unknown Uncoded 03/01/25 15:55 Review of Systems Review of Systems: CONSTITUTIONAL: Denies fever, chills, or sweats. EYES: Denies visual changes, redness, or discharge. ENT: Denies rhinorrhea, congestion, sore throat. Positive for otalgia. CARDIOVASCULAR: Denies chest pain, palpitations, or edema. RESPIRATORY: Denies cough or dyspnea. GASTROINTESTINAL: Denies abdominal pain, nausea, vomiting, or diarrhea. GENITOURINARY: Denies dysuria or hematuria. SKIN: Denies rash or itching. MUSCULOSKELETAL: Denies back pain, joint pain, or myalgia. NEUROLOGIC: Denies headache, numbness, or weakness. PSYCHIATRIC: Denies anxiety or depression. All other systems reviewed are negative, except as documented in HPI. [facility] Past Medical History Medical History Morbid obesity with BMI of 40.0-44.9, adult Hydroureter Allergic reaction Surgical History Surgical History History of History of section Social History Social History Smoking status: Never smoker Alcohol intake: current Drinks per week: 1 Substance use: never Lack of Transportation: No Lack of Food: Never True Current Housing: I Have Housing Concerned About Future Housing: No Difficulty Paying Gas/Electric Bills: No Difficulty Paying for Meds: No Currently Unemployed: No Education: High School Diploma/GED Difficulty w/ Childcare or Family Care: No Living arrangements: alone Additional living arrangements comments: Lives alone with her children Occupation/Education: occupation Additional occupation/education comments: Works at [employer] Gender identity (if verbalized by the patient): Female Spiritual care concerns: No Comments At the time of my signature, I reviewed and agree with the nursing past medical, surgical, social, and family history. There is no relevant family history pertinent to the patient complaint. Exam Narrative: GENERAL: This is a well-nourished, well-developed adult, in no apparent distress. They are non ill-appearing, nontoxic appearing. Patient is morbidly obese. HEAD: normocephalic, atraumatic. EYES: Sclera clear/white. Conjunctiva normal. Vision is grossly intact. Extraocular movements intact EARS: External ears normal, left auditory canal clear and without drainage, right auditory canal erythematous without exudate. Right tragal tenderness. TMs normal without perforation. Hearing grossly intact. NOSE: External nose normal with no obvious nasal discharge, nasal turbinates without redness, no rhinorrhea. THROAT: Mucous membranes moist, posterior pharynx clear, without erythema or swelling. Uvula midline. NECK: Neck supple, non-tender without lymphadenopathy, masses or thyromegaly. CARDIOVASCULAR: Regular rate and rhythm without murmurs, gallops, or rubs. RESPIRATORY: Clear to auscultation. Breath sounds equal bilaterally. No wheezes, rales, or rhonchi. SKIN: warm, Dry, intact with no suspicious lesions or rash, good texture and turgor. NEURO: awake, alert, and oriented to person, place and time. There were no obvious focal neurologic abnormalities. EXTREMITIES: No joint tenderness, effusion, or edema noted. BACK: Nontender without deformity. No CVA tenderness. Course Course Emergency Course: Portions of this record may have been created with voice recognition software Level of Care: Express Care Visit Vital Signs Vital signs: Vital Signs Temperature 97.7 F 03/01/25 15:54 Pulse Rate 72 03/01/25 15:54 Respiratory Rate 18 03/01/25 15:54 Blood Pressure 121/75 03/01/25 15:54 Pulse Oximetry 100 03/01/25 15:54 Oxygen Delivery Room Air 03/01/25 15:54 Temperature 97.7 F 03/01/25 15:54 Pulse Rate 72 03/01/25 15:54 Respiratory Rate 18 03/01/25 15:54 Blood Pressure 121/75 03/01/25 15:54 Pulse Oximetry 100 03/01/25 15:54 Oxygen Delivery Room Air 03/01/25 15:54 Reviewed Medical Decision Making MDM Narrative Medical decision making narrative: Patient has right-sided otitis externa. Will treat with ciprofloxacin-dexamethasone ear drops. Discussed physical exam findings. Advised supportive measures and signs/symptoms to go to the ER. Pt is appropriate for outpt treatment and f/u. Differential Diagnosis Differential Diagnosis: Otitis media, otitis externa, upper respiratory infection, swimmer's ear Vital Signs Vital Signs: Vital Signs Temperature 97.7 F 03/01/25 15:54 Pulse Rate 72 03/01/25 15:54 Respiratory Rate 18 03/01/25 15:54 Blood Pressure 121/75 03/01/25 15:54 Pulse Oximetry 100 03/01/25 15:54 Oxygen Delivery Room Air 03/01/25 15:54 Temperature 97.7 F 03/01/25 15:54 Pulse Rate 72 03/01/25 15:54 Respiratory Rate 18 03/01/25 15:54 Blood Pressure 121/75 03/01/25 15:54 Pulse Oximetry 100 03/01/25 15:54 Oxygen Delivery Room Air 03/01/25 15:54 Critical Care Time Critical Care Time Critical Care Time: No Discharge Plan Discharge Clinical Impression: Otitis externa Patient Disposition: Home Condition: Stable Instructions: Antibiotic Form, Ear Infection (ED) Additional Instructions: Take antibiotic drops as directed. Tylenol and ibuprofen every 8 hours as needed to reduce fever, pain Avoid water or anything into the ear for one week Follow up with your personal physician for further evaluation and treatment within 3-5days. If your symptoms persist, change or worsen significantly, go to the emergency department for further evaluation. Patient Language: Serbian Prescriptions: New ciprofloxacin-dexamethasone 0.3-0.1 % drops,suspension 4 drp RIGHT EAR Q12H 7 Days Qty: 7.5 0RF No Action atorvastatin 80 mg tablet clopidogrel 75 mg tablet aspirin 81 mg tablet,delayed release (DR/EC) Follow-up/Referrals: PHYSICIAN,BOTTLE PACKER [Primary Care Provider] - Stand Alone Forms: Work/School Release IP Time of Disposition: 16:30
== END 2025-03-01 16:35 | disposition home or self-care (01) ==
DX: H60.91 Unspecified otitis externa, right ear (principal); E66.01 Morbid (severe) obesity due to excess calories; Z68.41 Body mass index [BMI] 40.0-44.9, adult; Z86.73 Personal history of transient ischemic attack (TIA), and cerebral infarction without residual deficits; Z79.01 Long term (current) use of anticoagulants
CPT/HCPCS: 99213; G0463

== ENCOUNTER 2025-07-05 17:17 | Emergency (ER) | payer MEDICAID, SELFPAY ==
[2025-07-05 17:30] VITALS: BP 124/76; PULSE 98; RESP 18; TEMP 36.9; O2SAT 97
--- NOTE | 2025-07-05 18:05 | ED.URI ---
HPI - URI/Sore Throat General Chief Complaint: Upper Respiratory Infection Stated Complaint: Fever/Sore Throat Time Seen by Provider: 07/05/25 18:05 Source: patient, RN notes reviewed and old records reviewed Mode of arrival: ambulatory Limitations: no limitations History of Present Illness HPI Narrative: 30-year-old female presents to the [facility] with complaints of a sore throat and reports a fever 102 yesterday. States that she has had body aches, nasal congestion, dry cough. Did take Tylenol. Treatments prior to arrival: acetaminophen Related Data Home Medications ?Medication ?Instructions ?Recorded ?Confirmed ?Last Taken ?Type aspirin 81 mg tablet,delayed mg 03/01/25 Unknown History release atorvastatin 80 mg tablet mg 03/01/25 Unknown History clopidogrel 75 mg tablet mg 03/01/25 Unknown History Allergies Allergy/AdvReac Type Severity Reaction Status Date / Time codeine Allergy Unknown Hives Verified 07/05/25 17:19 mushroom Allergy Swelling Verified 07/05/25 17:19 Kiwi Allergy Unknown Unknown Uncoded 03/01/25 15:55 Review of Systems Review of Systems: All systems reviewed & are unremarkable except as noted in HPI and below Constitutional: Constitutional: Reports as per HPI, Reports body ache(s) and Reports fever(s) ENT: Reports as per HPI and Reports sore throat Cardiovascular: Cardiovascular: Reports no additional cardiovascular complaints, Denies chest pain and Denies dyspnea Respiratory: Respiratory: Reports no additional respiratory complaints, Denies chest congestion, Denies cough and Denies dyspnea Musculoskeletal: Musculoskeletal: Reports no additional musculoskeletal complaints Integumentary/Breasts: Skin/Breast: Reports system reviewed and no additional complaints, except as docu PMFSH Past Medical History Medical History Morbid obesity with BMI of 40.0-44.9, adult Hydroureter Allergic reaction Surgical History Surgical History History of History of section Social History Social History Smoking status: Never smoker Alcohol intake: current Drinks per week: 1 Substance use: never Lack of Transportation: No Lack of Food: Never True Current Housing: I Have Housing Concerned About Future Housing: No Difficulty Paying Gas/Electric Bills: No Difficulty Paying for Meds: No Currently Unemployed: No Education: High School Diploma/GED Difficulty w/ Childcare or Family Care: No Living arrangements: alone Additional living arrangements comments: Lives alone with her children Occupation/Education: occupation Additional occupation/education comments: Works at [employer] Gender identity (if verbalized by the patient): Female Spiritual care concerns: No Comments At the time of my signature, I reviewed and agree with the nursing past medical, surgical, social, and family history. There is no relevant family history pertinent to the patient complaint. Exam Const: General: cooperative, healthy appearing, comfortable, no acute distress, well developed, alert and well nourished Nutritional Appearance: well nourished and obese Orientation/consciousness: patient oriented x3 Limitations: no limitations HENMT: Head: normal to inspection Ears: hearing grossly normal bilaterally, external ears normal, TM's normal bilaterally, EAC's normal, mastoids normal and no periauricular adenopathy Mouth: Yes Normal oral and palatal mucosa present, Yes lip normal, Yes tongue normal and Yes moist mucous membranes Throat: posterior oropharynx normal, uvula midline, postnasal drainage and no uvular edema Eyes: General: appearance normal, both eyes and all related structures Alignment and Position: alignment normal Neck: Neck: normal visual inspection, full ROM, no lymphadenopathy and no meningeal signs Chest: Chest palpation & inspection: normal inspection of the chest Resp: Effort & Inspection: normal respiratory effort and able to speak in complete sentences Auscultation: clear to auscultation bilaterally, no crackles, no rales, no rhonchi and no wheezes Cardio: Rate: regular rate Skin: General skin exam: normal color and no rashes or lesions noted Neuro: General: patient oriented x3, gait normal, moves all extremities and no meningeal signs Cognition (Neuro): normal cognition Speech: normal speech Gait exam (Neuro): Normal gait present Extrem: General: normal to inspection, full ROM, capillary refill normal and normal gait Psych: Appearance: grossly normal and well kempt Mental Status: mental status grossly normal Speech and movement: Normal speech and movement present and Clear speech present Affect: normal affect Attitude: cooperative Course Course Level of Care: Express Care Visit Vital Signs Vital signs: Vital Signs Temperature 98.4 F 07/05/25 17:30 Pulse Rate 98 07/05/25 17:30 Respiratory Rate 18 07/05/25 17:30 Blood Pressure 124/76 07/05/25 17:30 Pulse Oximetry 97 07/05/25 17:30 Oxygen Delivery Room Air 07/05/25 17:30 Temperature 98.4 F 07/05/25 17:30 Pulse Rate 98 07/05/25 17:30 Respiratory Rate 18 07/05/25 17:30 Blood Pressure 124/76 07/05/25 17:30 Pulse Oximetry 97 07/05/25 17:30 Oxygen Delivery Room Air 07/05/25 17:30 reviewed MDM MDM Narrative Medical decision making narrative: Patient sitting in exam room. Patient is nontoxic, vitals stable. Patient presents with URI symptoms for 1 day. Patient is flu COVID strep were negative, will culture for strep. No acute findings other than postnasal drainage noted on exam. Patient is appropriate for outpatient treatment of viral URI with close follow-up Discharge instructions reviewed with patient, as well as provided in writing per nursing staff. The instructions also include specific and strict return/GO TO THE ER as well as f/u information. All questions have been answered, and the patient deny any further questions with discharge and discharge plan. Some parts of this dictation were generated by voice recognition software and may contain typographical and/or grammatical inaccuracies. Differential Diagnosis Differential Diagnosis: Differential diagnostic considerations for upper respiratory infection include upper respiratory infection, croup, otitis media, sinusitis, viral infection, bronchitis, influenza, pharyngitis, strep, uvulitis.? Lab Data Labs: Lab Results 07/05/25 Range/Units 17:30 POC Influenza A Ag Negative (Negative) POC Influenza B Ag Negative (Negative) POC SARS CoV-2 Ag Negative (Negative) POC Grp A Strep Screen Negative (Negative) reviewed Discharge Plan Discharge Clinical Impression: PND (post-nasal drip) Upper respiratory infection Qualifiers: URI type: unspecified viral URI Qualified Code(s): J06.9 - Acute upper respiratory infection, unspecified Patient Disposition: Home Condition: Stable Instructions: Antibiotic Form, Upper Respiratory Infection (ED), Postnasal Drip (DC) Additional Instructions: Your rapid strep swab was negative today at [facility]. A throat culture will be sent to the laboratory for further testing. If the test is positive, you will receive a phone call within 48 hours and an appropriate antibiotic will be initiated at that time. Your rapid COVID test were negative Your rapid flu test was negative Your symptoms are likely due to a viral illness, which is not treated with antibiotics. Typically viral infections last 7-10 days, can linger for couple of weeks. It is very important to treat your symptoms. Drink plenty of water, Gatorade, Pedialyte, ice pops or Jell-O. -Alternate Tylenol and Motrin per package directions for fever or pain. You can alternate every 4 hours -Antihistamine medication such as Zyrtec/Claritin/Keila during the day can help improve symptoms. -doing daily nasal irrigations can help relieve pressure your sinuses. Things like a Neti pot -Use Flonase twice a day for 5 days then daily to help reduce the inflammation and dry up your sinuses. -You can also use Mucinex. Be sure to drink plenty of water with this medication at least 8 ounces with every dose and it is important to drink 8 to 10 glasses of water per day. Water is a natural decongestant -Eat and drink things that are easy to swallow, like tea or soup, or popsicles. -Oral rinses such as: Salt water gargles and/or may use topical anesthetic (eg. Chloraseptic spray) or lozenges to relieve dryness or throat pain). -Frequent hand washing or hand crown ironer operator is one of the best ways to prevent spread of infection. -Using a vaporizer or humidifier at night will also help thin secretions and help with coughing up phlegm. -Follow up with primary care provider in 7-10 days if condition is not improving - For new or worsening symptoms go directly to the nearest ER Patient Language: Setswana Prescriptions: No Action atorvastatin 80 mg tablet clopidogrel 75 mg tablet aspirin 81 mg tablet,delayed release (DR/EC) Follow-up/Referrals: PHYSICIAN,[facility] [Primary Care Provider, Internal Medicine] Stand Alone Forms: Work/School Release IP Time of Disposition: 18:18
[2025-07-05 18:10] LABS: EDCOVIDSCREEN Negative (Negative); EDINFLUASCREEN Negative (Negative); EDINFLUBSCREEN Negative (Negative); EDSTREPNEGPOS1 Negative (Negative)
== END 2025-07-05 18:25 | disposition home or self-care (01) ==
PROVIDERS: Emergency Provider Nurse Practitioner
DX: R09.82 Postnasal drip (principal); J06.9 Acute upper respiratory infection, unspecified; Z20.822 Contact with and (suspected) exposure to COVID-19; E66.01 Morbid (severe) obesity due to excess calories; Z68.42 Body mass index [BMI] 45.0-49.9, adult; Z79.82 Long term (current) use of aspirin
CPT/HCPCS: 87081; 87426; 87804; 87880; 99213; G0463